=== PATIENT | male | born 1995 | race Two or more races ===

== ENCOUNTER 2018-05-22 00:05 | Emergency (ER) | payer OTHER ==
[~2018-05-22] VITALS: Ht 157.5 cm; Wt 46.7 kg
[2018-05-22] MEDS ORDERED: IBUPROFEN 100MG/5ML ORAL SUSP 100 MG/5 ML UD PO ONE (00:30)
[2018-05-22] MEDS ORDERED: ACETAMINOPHEN 650 MG RECT SUPP PR ONE (01:15)
[2018-05-22 01:19] LABS: Hemoglobin 16.4 g/dL (13.5-17.5); White Blood Cell 6.8 10^3/uL (4.4-10.8)
[2018-05-22 01:23] LABS: Basophils # (auto) 0.1 uL; Basophils % (auto) 0.8 % (0.0-2.0); Eosinophils # (auto) 0.2 uL; Eosinophils % (auto) 2.6 % (0.0-7.0); Hematocrit 48.5 % (41.0-53.0); Lymphocytes # (auto) 0.9 uL; Lymphocytes % (auto) 13.7 % (10.0-50.0); Mean Corpuscular Hgb Conc. 33.9 g/dL (32.0-36.0); Mean Corpuscular Volume 88.6 fL (80.0-100.0); Monocytes # (auto) 0.7 uL; Monocytes % (auto) 10.2 % (0.0-12.0); Neutrophils # (auto) 4.9 uL; Neutrophils % (auto) 72.7 % (37.0-80.0); Platelet Count (auto) 106 10^3/uL (140-450); Red Blood Cells 5.47 10^6/uL (4.5-5.90)
[2018-05-22 01:36] LABS: Albumin 3.9 g/dL (3.4-5.0); Calcium 8.9 mg/dL (8.5-10.1); Potassium 4.5 mmol/L (3.5-5.1)
[2018-05-22 01:39] LABS: BUN/Creatinine Ratio 33.3
[2018-05-22 01:42] LABS: Bilirubin, Total 0.4 mg/dL (0.2-1.0); Total Protein 8.4 g/dL (6.4-8.2)
[2018-05-22] MEDS ORDERED: SODIUM CHLORIDE 0.9% 1,000 ML IV ONE (01:45)
[2018-05-22 03:51] LABS: Urine Amorphous Crystal FEW /hpf (None Seen); Urine Bacteria FEW /hpf (None Seen); Urine Blood Negative /uL (Negative); Urine Mucus FEW (None Seen); Urine Specific Gravity 1.032 (1.001-1.035); Urine WBC 4 /hpf (0 - 3)
[2018-05-22 05:45] VITALS: BP 157/129
== END 2018-05-22 06:36 | disposition home or self-care (01) ==
LOC: EDBD 00:05 → ER 00:05
DX: J06.9 Acute upper respiratory infection, unspecified (principal)
CPT/HCPCS: 36415; 71045; 80053; 81001; 85025; 94761

== ENCOUNTER → 2019-09-27 | Emergency (ER) | payer MEDICAID ==
[~2019-09-27] VITALS: Ht 134.6 cm; Wt 46.3 kg
[~2019-09-27] MED LIST: OXCA300T50 OR
[2019-09-27 20:53] VITALS: BP 116/66
== END | disposition home or self-care (01) ==
LOC: EDUNIT# 19:42 → EDBD 19:57 → ER 19:58
DX: J20.9 Acute bronchitis, unspecified (principal); G80.9 Cerebral palsy, unspecified; Z79.899 Other long term (current) drug therapy
CPT/HCPCS: 71045

== ENCOUNTER 2020-07-14 18:18 | Emergency (ER) | payer MEDICAID, OTHER ==
[2020-07-14] MEDS ORDERED: GASTROGRAFIN 30 ML SOL ONE ×2 (18:42→19:16)
== END 2020-07-14 20:27 | disposition home or self-care (01) ==
LOC: ER 18:20 → MERGE 18:20 → EDBD 18:20 → ER 20:27
DX: Z43.1 Encounter for attention to gastrostomy (principal)
CPT/HCPCS: 43762; 74018; 74021; 99284; Q9963; 43760

== ENCOUNTER 2021-04-20 12:39 | Inpatient (IN) | payer MEDICAID ==
[~2021-04-20] VITALS: Ht 170.2 cm; Wt 51.2 kg
[2021-04-20 13:50] LABS: Basophils # (auto) 0.1 10 ^3/uL (0-0.2); Basophils % (auto) 0.4 % (0.0-2.0); Eosinophils # (auto) 0 10 ^3/uL (0-0.8); Hematocrit 46.2 % (41.0-53.0); Hemoglobin 15.5 g/dL (13.5-17.5); Lymphocytes # (auto) 0.5 10 ^3/uL (0.4-5.4); Lymphocytes % (auto) 2.9 % (10.0-50.0); Mean Corpuscular Hemoglobin 29.6 pg (28.0-32.0); Mean Corpuscular Hgb Conc. 33.5 g/dL (32.0-36.0); Mean Corpuscular Volume 88.2 fL (80.0-100.0); Monocytes % (auto) 6.2 % (0.0-12.0); Neutrophils # (auto) 14.9 10 ^3/uL (1.6-8.6); Neutrophils % (auto) 90.5 % (37.0-80.0); Red Blood Cells 5.24 10^6/uL (4.5-5.90); Red Cell Distribution Width 12.3 % (11.8-14.3); White Blood Cell 16.4 10^3/uL (4.4-10.8)
[2021-04-20 14:13] LABS: Albumin 3.5 g/dL (3.4-5.0); Calcium 9.5 mg/dL (8.5-10.1); Potassium 4.7 mmol/L (3.5-5.1)
[2021-04-20 14:16] LABS: BUN/Creatinine Ratio 23.5; Bilirubin, Total 0.5 mg/dL (0.2-1.0); Total Protein 8.4 g/dL (6.4-8.2)
[2021-04-20] MEDS ORDERED: ACETAMINOPHEN 650 mg PER 20.3 mL UD PO ONE (14:30)
[2021-04-20] MEDS ORDERED: ACETAMINOPHEN 650 MG RECT SUPP PR ONE (14:45)
[2021-04-20] MEDS ORDERED: cefTRIAXone 1GM/50ML D5W 50 ML IV ONE (15:00)
[2021-04-20 15:34] LABS: Urine Bacteria NONE SEEN /hpf (None Seen); Urine Blood TRACE /uL (Negative); Urine Mucus FEW (None Seen); Urine Specific Gravity 1.031 (1.001-1.035); Urine WBC 2 /hpf (0 - 3)
[2021-04-20] MEDS ORDERED: AZITHROMYCIN 500MG/ 250ML 250 ML IV ONE (17:15)
[2021-04-20] MEDS ORDERED: MORPHINE SULFATE INJECTION 2 MG/ML SYRG IV PRN (18:45)
[2021-04-20] MEDS ORDERED: VANCOMYCIN PER PHARMACY 0 MG IV SCH (18:45)
[2021-04-20] MEDS ORDERED: NITROGLYCERIN 0.4 MG SL TAB SL PRN (18:45)
[2021-04-20] MEDS ORDERED: CHOLECALCIFEROL (VITD3) 2,000 UNIT CAP/TAB PO SCH (19:35)
[2021-04-20] MEDS ORDERED: ASCORBIC ACID 1,000 MG TAB PO SCH (19:35)
[2021-04-20] MEDS: ZINC SULFATE 220mg CAP or TAB PO SCH (19:36)
[2021-04-20] MEDS ORDERED: DexAMETHasone SOD PHOS 10MG/1ML VIAL INJ IV SCH (19:36)
[2021-04-20] MEDS ORDERED: LORazepam 2MG/ML-1ML VIAL ONE (21:34)
[2021-04-20] MEDS ORDERED: LORazepam 2MG/ML-1ML VIAL IV ONE (21:45)
[2021-04-20] MEDS ORDERED: OXcarbazepine 300 MG TAB PO ONE (22:00)
[2021-04-20] MEDS: OXcarbazepine 300 MG TAB PO SCH (22:04)
[2021-04-20] MEDS: SODIUM CHLORIDE 0.9% 1,000 ML IV SCH (23:07)
[2021-04-20] MEDS: PIPERACILLIN-TAZOB 3.375GM 100 ML IV SCH (23:08)
[2021-04-20] MEDS: VANCOMYCIN 750mg/250ml 250 ML IV SCH (23:08)
[2021-04-21] MEDS: PIPERACILLIN-TAZOB 3.375GM 100 ML IV SCH ×4 (03:25→20:59)
[2021-04-21] MEDS: VANCOMYCIN 750mg/250ml 250 ML IV SCH ×3 (06:10→19:58)
[2021-04-21 07:30] LABS: Basophils # (auto) 0 10 ^3/uL (0-0.2); Basophils % (auto) 0.2 % (0.0-2.0); Eosinophils # (auto) 0 10 ^3/uL (0-0.8); Hematocrit 37.9 % (41.0-53.0); Hemoglobin 12.9 g/dL (13.5-17.5); Lymphocytes # (auto) 0.9 10 ^3/uL (0.4-5.4); Lymphocytes % (auto) 5.7 % (10.0-50.0); Mean Corpuscular Hemoglobin 30.2 pg (28.0-32.0); Mean Corpuscular Hgb Conc. 34.1 g/dL (32.0-36.0); Mean Corpuscular Volume 88.5 fL (80.0-100.0); Monocytes # (auto) 0.7 10 ^3/uL (0-1.3); Monocytes % (auto) 4.1 % (0.0-12.0); Neutrophils # (auto) 14.6 10 ^3/uL (1.6-8.6); Red Blood Cells 4.28 10^6/uL (4.5-5.90); Red Cell Distribution Width 12.3 % (11.8-14.3); White Blood Cell 16.2 10^3/uL (4.4-10.8)
[2021-04-21 07:36] LABS: Calcium 8.2 mg/dL (8.5-10.1); Potassium 3.9 mmol/L (3.5-5.1)
[2021-04-21 07:39] LABS: BUN/Creatinine Ratio 20.5
[2021-04-21] MEDS: Ensure Enlive Chocolate 8oz Bottle GT SCH ×3 (08:00→18:00)
[2021-04-21] MEDS: ZINC SULFATE 220mg CAP or TAB PO SCH (10:00)
[2021-04-21] MEDS ORDERED: Glucerna Carbsteady SHAKE Vanilla 8oz GT SCH (10:00)
[2021-04-21] MEDS ORDERED: OXcarbazepine 300 MG TAB PO SCH (10:00)
[2021-04-21] MEDS: ACETAMINOPHEN 650 mg PER 20.3 mL UD GT PRN (11:20)
[2021-04-21] MEDS: LORazepam 2MG/ML-1ML VIAL IV PRN (11:21)
[2021-04-21] MEDS: SODIUM CHLORIDE 0.9% 1,000 ML IV SCH ×2 (12:31→17:00)
[2021-04-21] MEDS ORDERED: SODIUM CHLORIDE 0.9% 1,000 ML IV ONE (14:45)
[2021-04-21] MEDS ORDERED: OMNIPAQUE ORAL SOLN 500ml 12mg/ml PO ONE (15:54)
[2021-04-21 17:13] LABS: INR 1.26 (0.9-1.15); Partial Thromboplastin Time 29.1 sec (23.6-33.0)
[2021-04-21] MEDS ORDERED: IOHEXOL 300 MG/ML 100ML BOTTLE IJ ONE (17:56)
[2021-04-21] MEDS: NOREPINEPHRINE 8 MG/250ML KIT 250 ML IV SCH (18:18)
[2021-04-21] MEDS ORDERED: Jevity 1.2 Cal/Fiber 1 Liter GT SCH (18:30)
[2021-04-21] MEDS: ONDANSETRON HCL 4 MG/2 ML VIAL IV PRN (19:13)
[2021-04-21] MEDS: ENTERAL NUTRITION FORMULA GT SCH (20:59)
[2021-04-21] MEDS: OXcarbazepine 300 MG TAB PO SCH (22:02)
[2021-04-22] VITALS (26 sets, daily range): BP systolic 72–140; BP diastolic 34–94
[2021-04-22] MEDS: LORazepam 2MG/ML-1ML VIAL IV PRN (02:57)
[2021-04-22] MEDS: PIPERACILLIN-TAZOB 3.375GM 100 ML IV SCH ×4 (03:06→21:29)
[2021-04-22] MEDS: VANCOMYCIN 750mg/250ml 250 ML IV SCH ×3 (04:00→20:20)
[2021-04-22] MEDS: ACETAMINOPHEN 650 mg PER 20.3 mL UD GT PRN ×2 (05:22→20:24)
[2021-04-22] MEDS: NOREPINEPHRINE 8 MG/250ML KIT 250 ML IV SCH (06:07)
[2021-04-22 07:12] LABS: Basophils # (auto) 0 10 ^3/uL (0-0.2); Basophils % (auto) 0.2 % (0.0-2.0); Eosinophils # (auto) 0 10 ^3/uL (0-0.8); Eosinophils % (auto) 0.1 % (0.0-7.0); Hemoglobin 12.4 g/dL (13.5-17.5); Lymphocytes # (auto) 1.4 10 ^3/uL (0.4-5.4); Lymphocytes % (auto) 8.2 % (10.0-50.0); Mean Corpuscular Hemoglobin 29.1 pg (28.0-32.0); Mean Corpuscular Hgb Conc. 32.7 g/dL (32.0-36.0); Mean Corpuscular Volume 88.9 fL (80.0-100.0); Monocytes # (auto) 0.7 10 ^3/uL (0-1.3); Monocytes % (auto) 3.9 % (0.0-12.0); Neutrophils # (auto) 15.3 10 ^3/uL (1.6-8.6); Neutrophils % (auto) 87.6 % (37.0-80.0); Nucleated Red Blood Cells % 0.1 %; Red Blood Cells 4.28 10^6/uL (4.5-5.90); Red Cell Distribution Width 12.7 % (11.8-14.3); White Blood Cell 17.5 10^3/uL (4.4-10.8)
[2021-04-22 07:34] LABS: BUN/Creatinine Ratio 20.8; Calcium 7.4 mg/dL (8.5-10.1); Potassium 3.3 mmol/L (3.5-5.1)
[2021-04-22 07:37] LABS: Bilirubin, Total 0.4 mg/dL (0.2-1.0); Total Protein 5.6 g/dL (6.4-8.2)
[2021-04-22] MEDS: ENTERAL NUTRITION FORMULA GT SCH ×3 (08:00→19:00)
[2021-04-22] MEDS: OXcarbazepine 300 MG TAB PO SCH ×2 (10:00→21:29)
[2021-04-22] MEDS: SODIUM CHLORIDE 0.9% 1,000 ML IV SCH (10:45)
[2021-04-22] MEDS: POTASSIUM CHL 20MEQ/100ML 100 ML IV SCH ×2 (11:00→12:45)
[2021-04-22] MEDS ORDERED: ROCURONIUM 10MG/ML 10ML VIAL IV ONE ×2 (11:57→13:22)
[2021-04-22] MEDS ORDERED: SUCCINYLCHOLINE CHLORIDE 20 MG/ML 10ML VIAL IV ONE (11:57)
[2021-04-22] MEDS ORDERED: HYDROmorphone HCL 2 MG/ML VL ONE ×2 (12:03→13:50)
[2021-04-22] MEDS ORDERED: fentaNYL CITRATE 100 MCG/2 ML VL ONE (12:04)
[2021-04-22] MEDS ORDERED: PHENYLEPHRINE HCL 10 MG/ML VL ONE (12:04)
[2021-04-22] MEDS ORDERED: MIDAZOLAM HCL 2MG/2ML 2ml VIAL (1mg/ml) ONE ×2 (12:04→14:26)
[2021-04-22] MEDS ORDERED: BUPIVACAINE 0.25% INJ 50ML VIAL ONE (12:21)
[2021-04-22] MEDS ORDERED: ceFAZolin 1GM/50ML 50 ML IV ONE (12:50)
[2021-04-22] MEDS ORDERED: ONDANSETRON HCL 4 MG/2 ML VIAL IV PRN (15:00)
[2021-04-22] MEDS ORDERED: HYDROmorphone HCL 2 MG/ML VL IV PRN (15:00)
[2021-04-22] MEDS ORDERED: MORPHINE SULFATE 4 MG/ML SYR/VIAL IV PRN (15:00)
[2021-04-22] MEDS: MIDAZOLAM DRIP 50 mg/50mL 50 ML IV SCH (17:30)
[2021-04-22] MEDS: fentaNYL Drip 2500mCg/250mlNS 250 ML IV SCH (17:30)
[2021-04-22] MEDS: PROPOFOL 100 ML IV SCH (18:15)
[2021-04-22] MEDS ORDERED: PROPOFOL 100 ML IV ONE (18:17)
[2021-04-23] VITALS (106 sets, daily range): BP systolic 83–118; BP diastolic 45–79
[2021-04-23] MEDS: PIPERACILLIN-TAZOB 3.375GM 100 ML IV SCH ×4 (03:11→20:46)
[2021-04-23] MEDS: VANCOMYCIN 750mg/250ml 250 ML IV SCH (04:21)
[2021-04-23] MEDS: NOREPINEPHRINE 8 MG/250ML KIT 250 ML IV SCH (07:07)
[2021-04-23 07:23] LABS: Basophils # (auto) 0 10 ^3/uL (0-0.2); Basophils % (auto) 0.2 % (0.0-2.0); Eosinophils # (auto) 0.1 10 ^3/uL (0-0.8); Eosinophils % (auto) 0.7 % (0.0-7.0); Hematocrit 40.9 % (41.0-53.0); Hemoglobin 13.8 g/dL (13.5-17.5); Lymphocytes # (auto) 0.9 10 ^3/uL (0.4-5.4); Lymphocytes % (auto) 5.3 % (10.0-50.0); Mean Corpuscular Hgb Conc. 33.7 g/dL (32.0-36.0); Mean Corpuscular Volume 88.8 fL (80.0-100.0); Monocytes # (auto) 0.8 10 ^3/uL (0-1.3); Monocytes % (auto) 5.1 % (0.0-12.0); Neutrophils # (auto) 14.8 10 ^3/uL (1.6-8.6); Neutrophils % (auto) 88.7 % (37.0-80.0); Red Blood Cells 4.61 10^6/uL (4.5-5.90); Red Cell Distribution Width 12.9 % (11.8-14.3); White Blood Cell 16.7 10^3/uL (4.4-10.8)
[2021-04-23 07:38] LABS: Albumin 1.8 g/dL (3.4-5.0); Calcium 7.8 mg/dL (8.5-10.1)
[2021-04-23 07:42] LABS: BUN/Creatinine Ratio 8.9; Bilirubin, Total 0.3 mg/dL (0.2-1.0); Total Protein 5.8 g/dL (6.4-8.2)
[2021-04-23] MEDS: ENTERAL NUTRITION FORMULA GT SCH ×3 (08:00→19:00)
[2021-04-23] MEDS: POTASSIUM CHL 20MEQ/100ML 100 ML IV SCH ×2 (08:47→10:49)
[2021-04-23] MEDS: OXcarbazepine 300 MG TAB PO SCH ×2 (08:56→21:35)
[2021-04-23] MEDS: D5W/SOD CHLO 0.9% 1,000 ML IV SCH (10:45)
[2021-04-23] MEDS ORDERED: CLINIMIX PER PHARMACY 0 ML IV SCH (13:45)
[2021-04-23] MEDS: CLINDAMYCIN 300MG IV 50 ML IV SCH ×2 (14:13→21:34)
[2021-04-23 14:56] LABS: Magnesium 2.3 mg/dL (1.6-2.6); Phosphorus 2.2 mg/dL (2.5-4.90)
[2021-04-23] MEDS ORDERED: POTASSIUM PHOSP 22MEQ(15MMOLE) in NS 100 ML IV ONE (16:00)
[2021-04-23] MEDS: fentaNYL Drip 2500mCg/250mlNS 250 ML IV SCH (16:19)
[2021-04-23] MEDS: MIDAZOLAM DRIP 50 mg/50mL 50 ML IV SCH (16:20)
[2021-04-23] MEDS: PROPOFOL 100 ML IV SCH (18:15)
[2021-04-23] MEDS ORDERED: AMINO ACID INFUSION IN D10W 1,000 ML IV NR (20:00)
[2021-04-23] MEDS: ACCU-CHEK COMFORT CURVE STRIP VI SCH (23:33)
[2021-04-24] VITALS (103 sets, daily range): BP systolic 76–139; BP diastolic 31–98
[2021-04-24] MEDS ORDERED: DEXTROSE (50%) 50ML SYRG IV SCH
[2021-04-24] MEDS: PIPERACILLIN-TAZOB 3.375GM 100 ML IV SCH ×5 (03:23→21:08)
[2021-04-24 04:33] LABS: Albumin 1.6 g/dL (3.4-5.0); Calcium 7.7 mg/dL (8.5-10.1); Magnesium 2.2 mg/dL (1.6-2.6); Potassium 3.1 mmol/L (3.5-5.1)
[2021-04-24 04:39] LABS: BUN/Creatinine Ratio 12.2; Bilirubin, Total 0.3 mg/dL (0.2-1.0); Phosphorus 3.9 mg/dL (2.5-4.90); Pre Albumin 5.7 mg/dL (20.0-40.0); Total Protein 5.5 g/dL (6.4-8.2)
[2021-04-24] MEDS: CLINDAMYCIN 300MG IV 50 ML IV SCH ×3 (05:52→21:35)
[2021-04-24] MEDS: ACCU-CHEK COMFORT CURVE STRIP VI SCH ×3 (05:52→17:52)
[2021-04-24] MEDS: InsuLIN REG 1unit/0.01ml Soln (100units/ml) SC SCH ×4 (05:52→17:52)
[2021-04-24] MEDS: D5W/SOD CHLO 0.9% 1,000 ML IV SCH ×2 (07:00→13:25)
[2021-04-24] MEDS: MIDAZOLAM DRIP 50 mg/50mL 50 ML IV SCH ×2 (07:54→17:54)
[2021-04-24] MEDS: ENTERAL NUTRITION FORMULA GT SCH ×3 (08:00→15:35)
[2021-04-24] MEDS: ACETAMINOPHEN 650 mg PER 20.3 mL UD GT PRN ×2 (08:15→17:56)
[2021-04-24] MEDS: OXcarbazepine 300 MG TAB PO SCH ×2 (09:21→21:35)
[2021-04-24 09:57] LABS: Basophils # (auto) 0 10 ^3/uL (0-0.2); Basophils % (auto) 0.2 % (0.0-2.0); Eosinophils # (auto) 0.3 10 ^3/uL (0-0.8); Eosinophils % (auto) 2.4 % (0.0-7.0); Hematocrit 36.3 % (41.0-53.0); Hemoglobin 12.3 g/dL (13.5-17.5); Lymphocytes # (auto) 1.5 10 ^3/uL (0.4-5.4); Lymphocytes % (auto) 12.1 % (10.0-50.0); Mean Corpuscular Hemoglobin 30.1 pg (28.0-32.0); Mean Corpuscular Hgb Conc. 33.8 g/dL (32.0-36.0); Mean Corpuscular Volume 89.3 fL (80.0-100.0); Monocytes # (auto) 0.9 10 ^3/uL (0-1.3); Monocytes % (auto) 7.8 % (0.0-12.0); Neutrophils # (auto) 9.3 10 ^3/uL (1.6-8.6); Neutrophils % (auto) 77.5 % (37.0-80.0); Red Blood Cells 4.07 10^6/uL (4.5-5.90)
[2021-04-24] MEDS: LORazepam 2MG/ML-1ML VIAL IV PRN (11:45)
[2021-04-24] MEDS ORDERED: FAMOTIDINE (10MG/ML) 2ML VL IV ONE (12:45)
[2021-04-24] MEDS ORDERED: PIPERACILLIN-TAZOB 3.375GM 100 ML IV ONE (13:29)
[2021-04-24] MEDS ORDERED: SODIUM CHLORIDE 0.9% 200 ML IV ONE (13:30)
[2021-04-24] MEDS: POTASSIUM CHL 20MEQ/100ML 100 ML IV SCH ×3 (13:39→16:18)
[2021-04-24] MEDS: NOREPINEPHRINE 8 MG/250ML KIT 250 ML IV SCH (13:40)
[2021-04-24] MEDS ORDERED: PIPERACILLIN-TAZOB 3.375GM 100 ML IV SCH (15:00)
[2021-04-24] MEDS: fentaNYL Drip 2500mCg/250mlNS 250 ML IV SCH (15:22)
[2021-04-24] MEDS: PROPOFOL 100 ML IV SCH (17:53)
[2021-04-24] MEDS ORDERED: AMINO ACID INFUSION IN D10W 1,000 ML IV NR (20:00)
[2021-04-24] MEDS ORDERED: DIGOXIN (250MCG/ML) 2 ML AMPULE ONE (21:11)
[2021-04-24] MEDS ORDERED: NOREPINEPHRINE BITARTRATE 2 ML IV ONE (22:14)
[2021-04-25] VITALS (88 sets, daily range): BP systolic 88–135; BP diastolic 52–91
[2021-04-25] MEDS: ACCU-CHEK COMFORT CURVE STRIP VI SCH ×4 (00:42→17:36)
[2021-04-25] MEDS: ACETAMINOPHEN 650 mg PER 20.3 mL UD GT PRN ×2 (00:51→14:33)
[2021-04-25] MEDS: PIPERACILLIN-TAZOB 3.375GM 100 ML IV SCH ×4 (03:23→20:43)
[2021-04-25 04:03] LABS: Basophils # (auto) 0 10 ^3/uL (0-0.2); Basophils % (auto) 0.3 % (0.0-2.0); Eosinophils # (auto) 0.4 10 ^3/uL (0-0.8); Eosinophils % (auto) 3.7 % (0.0-7.0); Hematocrit 36.1 % (41.0-53.0); Hemoglobin 12.3 g/dL (13.5-17.5); Lymphocytes # (auto) 1.1 10 ^3/uL (0.4-5.4); Lymphocytes % (auto) 11.1 % (10.0-50.0); Mean Corpuscular Hemoglobin 29.9 pg (28.0-32.0); Mean Corpuscular Hgb Conc. 34.2 g/dL (32.0-36.0); Mean Corpuscular Volume 87.6 fL (80.0-100.0); Monocytes # (auto) 0.7 10 ^3/uL (0-1.3); Neutrophils # (auto) 7.6 10 ^3/uL (1.6-8.6); Neutrophils % (auto) 77.9 % (37.0-80.0); Red Blood Cells 4.12 10^6/uL (4.5-5.90); Red Cell Distribution Width 12.7 % (11.8-14.3); White Blood Cell 9.8 10^3/uL (4.4-10.8)
[2021-04-25 04:29] LABS: Albumin 1.6 g/dL (3.4-5.0); Calcium 7.9 mg/dL (8.5-10.1); Magnesium 2.1 mg/dL (1.6-2.6); Potassium 3.4 mmol/L (3.5-5.1)
[2021-04-25 04:32] LABS: Bilirubin, Total 0.3 mg/dL (0.2-1.0); Phosphorus 3.2 mg/dL (2.5-4.90); Total Protein 5.6 g/dL (6.4-8.2)
[2021-04-25] MEDS: LORazepam 2MG/ML-1ML VIAL IV PRN ×2 (04:59→15:33)
[2021-04-25] MEDS: InsuLIN REG 1unit/0.01ml Soln (100units/ml) SC SCH ×4 (06:00→17:36)
[2021-04-25] MEDS: D5W/SOD CHLO 0.9% 1,000 ML IV SCH ×2 (06:15→17:49)
[2021-04-25] MEDS: CLINDAMYCIN 300MG IV 50 ML IV SCH ×3 (06:16→21:58)
[2021-04-25] MEDS: ENTERAL NUTRITION FORMULA GT SCH ×3 (08:00→19:00)
[2021-04-25] MEDS ORDERED: POTASSIUM CHL 20MEQ/100ML 100 ML IV ONE (09:00)
[2021-04-25] MEDS: OXcarbazepine 300 MG TAB PO SCH ×2 (09:41→21:59)
[2021-04-25] MEDS: FAMOTIDINE (10MG/ML) 2ML VL IV SCH (09:41)
[2021-04-25] MEDS: NOREPINEPHRINE 8 MG/250ML KIT 250 ML IV SCH (13:30)
[2021-04-25] MEDS: MIDAZOLAM DRIP 50 mg/50mL 50 ML IV SCH ×2 (15:19→20:31)
[2021-04-25] MEDS: fentaNYL Drip 2500mCg/250mlNS 250 ML IV SCH (18:01)
[2021-04-25] MEDS: PROPOFOL 100 ML IV SCH (18:15)
[2021-04-25] MEDS ORDERED: AMINO ACID INFUSION IN D10W 1,000 ML IV NR (20:00)
[2021-04-26] VITALS (104 sets, daily range): BP systolic 82–129; BP diastolic 44–94
[2021-04-26] MEDS: ACCU-CHEK COMFORT CURVE STRIP VI SCH ×4 (00:25→18:08)
[2021-04-26] MEDS: PIPERACILLIN-TAZOB 3.375GM 100 ML IV SCH ×4 (03:22→20:35)
[2021-04-26 04:58] LABS: Basophils # (auto) 0 10 ^3/uL (0-0.2); Basophils % (auto) 0.4 % (0.0-2.0); Eosinophils # (auto) 0.3 10 ^3/uL (0-0.8); Eosinophils % (auto) 5.2 % (0.0-7.0); Hematocrit 33.7 % (41.0-53.0); Hemoglobin 11.4 g/dL (13.5-17.5); Lymphocytes # (auto) 0.9 10 ^3/uL (0.4-5.4); Lymphocytes % (auto) 13.9 % (10.0-50.0); Mean Corpuscular Hemoglobin 30.1 pg (28.0-32.0); Mean Corpuscular Volume 88.5 fL (80.0-100.0); Monocytes # (auto) 0.7 10 ^3/uL (0-1.3); Monocytes % (auto) 9.8 % (0.0-12.0); Neutrophils # (auto) 4.7 10 ^3/uL (1.6-8.6); Neutrophils % (auto) 70.7 % (37.0-80.0); Red Blood Cells 3.81 10^6/uL (4.5-5.90); Red Cell Distribution Width 12.7 % (11.8-14.3); White Blood Cell 6.7 10^3/uL (4.4-10.8)
[2021-04-26 05:17] LABS: Potassium 3.2 mmol/L (3.5-5.1)
[2021-04-26 05:21] LABS: Albumin 1.4 g/dL (3.4-5.0); BUN/Creatinine Ratio 21.2; Calcium 7.9 mg/dL (8.5-10.1)
[2021-04-26 05:24] LABS: Bilirubin, Total 0.4 mg/dL (0.2-1.0); Phosphorus 3.1 mg/dL (2.5-4.90); Total Protein 5.7 g/dL (6.4-8.2)
[2021-04-26] MEDS: InsuLIN REG 1unit/0.01ml Soln (100units/ml) SC SCH ×4 (06:00→18:00)
[2021-04-26] MEDS: ACETAMINOPHEN 650 mg PER 20.3 mL UD GT PRN ×3 (06:15→16:56)
[2021-04-26] MEDS: CLINDAMYCIN 300MG IV 50 ML IV SCH ×3 (06:15→22:24)
[2021-04-26] MEDS: fentaNYL Drip 2500mCg/250mlNS 250 ML IV SCH (06:55)
[2021-04-26] MEDS: MIDAZOLAM DRIP 50 mg/50mL 50 ML IV SCH (06:56)
[2021-04-26] MEDS: ENTERAL NUTRITION FORMULA GT SCH ×3 (08:00→16:22)
[2021-04-26] MEDS ORDERED: POTASSIUM CHL 20MEQ/100ML 100 ML IV ONE (08:45)
[2021-04-26] MEDS: FAMOTIDINE (10MG/ML) 2ML VL IV SCH (10:25)
[2021-04-26] MEDS: OXcarbazepine 300 MG TAB PO SCH ×2 (10:25→20:36)
[2021-04-26] MEDS ORDERED: POTASSIUM PHOSPHATE 22 MEQ in SODIUM CHL 0.9% 100 ML IV ONE (11:00)
[2021-04-26] MEDS: NOREPINEPHRINE 8 MG/250ML KIT 250 ML IV SCH (13:30)
[2021-04-26] MEDS: PROPOFOL 100 ML IV SCH (17:03)
[2021-04-26] MEDS ORDERED: AMINO ACID INFUSION IN D10W 1,000 ML IV NR (20:00)
[2021-04-26] MEDS: LORazepam 2MG/ML-1ML VIAL IV PRN (22:00)
[2021-04-27] VITALS (83 sets, daily range): BP systolic 88–135; BP diastolic 44–88
[2021-04-27] MEDS: ACCU-CHEK COMFORT CURVE STRIP VI SCH ×4 (00:11→18:26)
[2021-04-27] MEDS: ACETAMINOPHEN 650 mg PER 20.3 mL UD GT PRN ×2 (00:23→20:21)
[2021-04-27] MEDS: D5W/SOD CHLO 0.9% 1,000 ML IV SCH (01:00)
[2021-04-27] MEDS: fentaNYL Drip 2500mCg/250mlNS 250 ML IV SCH (03:00)
[2021-04-27] MEDS: PIPERACILLIN-TAZOB 3.375GM 100 ML IV SCH ×4 (03:01→20:31)
[2021-04-27 04:15] LABS: Basophils # (auto) 0 10 ^3/uL (0-0.2); Basophils % (auto) 0.3 % (0.0-2.0); Eosinophils # (auto) 0.2 10 ^3/uL (0-0.8); Eosinophils % (auto) 2.9 % (0.0-7.0); Hematocrit 33.2 % (41.0-53.0); Hemoglobin 11.3 g/dL (13.5-17.5); Lymphocytes % (auto) 13.3 % (10.0-50.0); Mean Corpuscular Hemoglobin 29.5 pg (28.0-32.0); Mean Corpuscular Volume 86.8 fL (80.0-100.0); Monocytes # (auto) 0.9 10 ^3/uL (0-1.3); Monocytes % (auto) 11.9 % (0.0-12.0); Neutrophils # (auto) 5.2 10 ^3/uL (1.6-8.6); Neutrophils % (auto) 71.6 % (37.0-80.0); Red Blood Cells 3.83 10^6/uL (4.5-5.90); Red Cell Distribution Width 12.6 % (11.8-14.3); White Blood Cell 7.3 10^3/uL (4.4-10.8)
[2021-04-27 04:35] LABS: Potassium 3.4 mmol/L (3.5-5.1)
[2021-04-27 04:42] LABS: Albumin 1.7 g/dL (3.4-5.0); Bilirubin, Total 0.3 mg/dL (0.2-1.0); Calcium 8.2 mg/dL (8.5-10.1); Magnesium 2.3 mg/dL (1.6-2.6); Phosphorus 3.6 mg/dL (2.5-4.90); Total Protein 6.3 g/dL (6.4-8.2)
[2021-04-27] MEDS: InsuLIN REG 1unit/0.01ml Soln (100units/ml) SC SCH ×4 (06:00→18:00)
[2021-04-27] MEDS: CLINDAMYCIN 300MG IV 50 ML IV SCH ×3 (06:21→22:40)
[2021-04-27] MEDS: ENTERAL NUTRITION FORMULA GT SCH ×3 (08:00→18:02)
[2021-04-27] MEDS ORDERED: POTASSIUM CHL 20MEQ/100ML 100 ML IV ONE (09:15)
[2021-04-27] MEDS: FAMOTIDINE (10MG/ML) 2ML VL IV SCH (12:25)
[2021-04-27] MEDS: OXcarbazepine 300 MG TAB PO SCH ×2 (12:25→22:41)
[2021-04-27] MEDS: NOREPINEPHRINE 8 MG/250ML KIT 250 ML IV SCH (13:30)
[2021-04-27] MEDS: MIDAZOLAM DRIP 50 mg/50mL 50 ML IV SCH (15:36)
[2021-04-27] MEDS: PROPOFOL 100 ML IV SCH (18:02)
[2021-04-27] MEDS: LORazepam 2MG/ML-1ML VIAL IV PRN (18:28)
[2021-04-27] MEDS ORDERED: AMINO ACID INFUSION IN D10W 1,000 ML IV NR (20:00)
[2021-04-28] VITALS (41 sets, daily range): BP systolic 91–140; BP diastolic 52–87
[2021-04-28] MEDS: D5W/SOD CHLO 0.9% 1,000 ML IV SCH (00:45)
[2021-04-28] MEDS: ONDANSETRON HCL 4 MG/2 ML VIAL IV PRN (00:59)
[2021-04-28] MEDS ORDERED: PROMETHAZINE HCL 25 MG/ML 1ML ONE (01:30)
[2021-04-28] MEDS ORDERED: PROMETHAZINE HCL 25 MG/ML 1ML IV ONE (01:30)
[2021-04-28] MEDS: PIPERACILLIN-TAZOB 3.375GM 100 ML IV SCH ×2 (03:33→09:08)
[2021-04-28] MEDS: ACETAMINOPHEN 650 mg PER 20.3 mL UD GT PRN (03:35)
[2021-04-28 05:14] LABS: Potassium 3.2 mmol/L (3.5-5.1)
[2021-04-28 05:20] LABS: Albumin 2.1 g/dL (3.4-5.0); BUN/Creatinine Ratio 22.2; Bilirubin, Total 0.2 mg/dL (0.2-1.0); Calcium 8.7 mg/dL (8.5-10.1); Magnesium 2.5 mg/dL (1.6-2.6); Total Protein 7.4 g/dL (6.4-8.2)
[2021-04-28] MEDS: InsuLIN REG 1unit/0.01ml Soln (100units/ml) SC SCH ×5 (06:00→23:45)
[2021-04-28] MEDS: CLINDAMYCIN 300MG IV 50 ML IV SCH (06:18)
[2021-04-28] MEDS: ACCU-CHEK COMFORT CURVE STRIP VI SCH ×5 (06:18→23:45)
[2021-04-28] MEDS: ENTERAL NUTRITION FORMULA GT SCH ×3 (08:00→19:00)
[2021-04-28] MEDS: POTASSIUM CHL 20MEQ/100ML 100 ML IV SCH ×3 (09:08→15:46)
[2021-04-28] MEDS: OXcarbazepine 300 MG TAB PO SCH ×2 (09:08→22:00)
[2021-04-28] MEDS: FAMOTIDINE (10MG/ML) 2ML VL IV SCH (09:08)
[2021-04-28] MEDS: PROMETHAZINE HCL 25 MG/ML 1ML IV PRN ×2 (11:33→20:44)
[2021-04-28] MEDS: DOXYCYCLINE 100MG/250ML 250 ML IV SCH ×2 (12:21→23:19)
[2021-04-28] MEDS: LORazepam 2MG/ML-1ML VIAL IV PRN (13:10)
[2021-04-28] MEDS: NOREPINEPHRINE 8 MG/250ML KIT 250 ML IV SCH (13:30)
[2021-04-28] MEDS: fentaNYL Drip 2500mCg/250mlNS 250 ML IV SCH (16:15)
[2021-04-28] MEDS: MIDAZOLAM DRIP 50 mg/50mL 50 ML IV SCH (16:15)
[2021-04-28] MEDS: MORPHINE SULFATE INJECTION 2 MG/ML SYRG IV PRN ×2 (17:37→21:40)
[2021-04-28] MEDS: ACETAMINOPHEN 650 MG RECT SUPP PR PRN (17:45)
[2021-04-28] MEDS: PROPOFOL 100 ML IV SCH (18:15)
[2021-04-28] MEDS ORDERED: AMINO ACID INFUSION IN D10W 1,000 ML IV NR (20:00)
[2021-04-28] MEDS ORDERED: ACETAMINOPHEN IV 1000 MG/100ML (10MG/ML) IV ONE (20:30)
[2021-04-28] MEDS: metroNIDAZOLE 500MG/100ML 100 ML IV SCH (22:00)
[2021-04-29] VITALS (15 sets, daily range): BP systolic 102–172; BP diastolic 52–139
[2021-04-29] MEDS: D5W/SOD CHLO 0.9% 1,000 ML IV SCH (00:58)
[2021-04-29] MEDS: LORazepam 2MG/ML-1ML VIAL IV PRN ×5 (01:10→20:08)
[2021-04-29] MEDS: ACETAMINOPHEN 650 MG RECT SUPP PR PRN ×3 (04:22→20:08)
[2021-04-29] MEDS: InsuLIN REG 1unit/0.01ml Soln (100units/ml) SC SCH ×3 (06:00→18:00)
[2021-04-29] MEDS: metroNIDAZOLE 500MG/100ML 100 ML IV SCH ×2 (06:10→14:33)
[2021-04-29] MEDS: ACCU-CHEK COMFORT CURVE STRIP VI SCH ×3 (06:11→18:32)
[2021-04-29] MEDS: ENTERAL NUTRITION FORMULA GT SCH ×3 (08:00→19:00)
[2021-04-29 08:49] LABS: Basophils # (auto) 0 10 ^3/uL (0-0.2); Basophils % (auto) 0.3 % (0.0-2.0); Eosinophils # (auto) 0.1 10 ^3/uL (0-0.8); Eosinophils % (auto) 1.5 % (0.0-7.0); Hematocrit 36.6 % (41.0-53.0); Hemoglobin 12.5 g/dL (13.5-17.5); Lymphocytes # (auto) 0.8 10 ^3/uL (0.4-5.4); Lymphocytes % (auto) 8.5 % (10.0-50.0); Mean Corpuscular Hgb Conc. 34.1 g/dL (32.0-36.0); Mean Corpuscular Volume 87.8 fL (80.0-100.0); Monocytes # (auto) 0.6 10 ^3/uL (0-1.3); Monocytes % (auto) 6.8 % (0.0-12.0); Neutrophils # (auto) 7.6 10 ^3/uL (1.6-8.6); Neutrophils % (auto) 82.9 % (37.0-80.0); Nucleated Red Blood Cells % 0.1 %; Red Blood Cells 4.17 10^6/uL (4.5-5.90); Red Cell Distribution Width 12.5 % (11.8-14.3); White Blood Cell 9.2 10^3/uL (4.4-10.8)
[2021-04-29 09:07] LABS: Albumin 2.2 g/dL (3.4-5.0); Calcium 8.4 mg/dL (8.5-10.1); Magnesium 2.5 mg/dL (1.6-2.6); Potassium 3.3 mmol/L (3.5-5.1)
[2021-04-29 09:10] LABS: BUN/Creatinine Ratio 44.1; Bilirubin, Total 0.3 mg/dL (0.2-1.0); Phosphorus 3.4 mg/dL (2.5-4.90); Total Protein 6.8 g/dL (6.4-8.2)
[2021-04-29] MEDS: FAMOTIDINE (10MG/ML) 2ML VL IV SCH (09:44)
[2021-04-29] MEDS: OXcarbazepine 300 MG TAB PO SCH (09:45)
[2021-04-29] MEDS ORDERED: levoFLOXacin 250MG 50 ML IV SCH (10:00)
[2021-04-29] MEDS ORDERED: ACETYLCYSTEINE 10 %(100MG/ML) SOL 4ML NEB ONE (11:30)
[2021-04-29] MEDS: MORPHINE SULFATE INJECTION 2 MG/ML SYRG IV PRN ×2 (11:52→18:00)
[2021-04-29] MEDS: ALBUTEROL SULF 2.5 MG/0.5ML(0.5%) NEB SOLN NEB PRN ×2 (11:59→19:20)
[2021-04-29] MEDS: DOXYCYCLINE 100MG/250ML 250 ML IV SCH (12:44)
[2021-04-29] MEDS: NOREPINEPHRINE 8 MG/250ML KIT 250 ML IV SCH (13:30)
[2021-04-29] MEDS ORDERED: FUROSEMIDE 20 MG/2 ML VIAL IV ONE (14:00)
[2021-04-29] MEDS: MIDAZOLAM DRIP 50 mg/50mL 50 ML IV SCH (16:15)
[2021-04-29] MEDS: fentaNYL Drip 2500mCg/250mlNS 250 ML IV SCH (16:15)
[2021-04-29] MEDS: POTASSIUM CHL 20MEQ/100ML 100 ML IV SCH ×2 (16:57→20:29)
[2021-04-29] MEDS ORDERED: VANCOMYCIN PER PHARMACY 0 MG IV SCH (17:00)
[2021-04-29] MEDS: PROMETHAZINE HCL 25 MG/ML 1ML IV PRN (17:59)
[2021-04-29] MEDS: PROPOFOL 100 ML IV SCH (18:15)
[2021-04-29] MEDS: AMPICILLIN & SULBACTAM SODIUM 3 GM in SODIUM CHL 0.9% 100 ML IV SCH ×2 (18:31→23:07)
[2021-04-29] MEDS: ACETYLCYSTEINE 10 %(100MG/ML) SOL 4ML NEB SCH ×3 (19:20→22:39)
[2021-04-29] MEDS ORDERED: AMINO ACID INFUSION IN D10W 1,000 ML IV NR (20:00)
[2021-04-29] MEDS: VANCOMYCIN 750mg/250ml 250 ML IV SCH (20:32)
[2021-04-29] MEDS ORDERED: IBUPROFEN 100MG/5ML ORAL SUSP 100 MG/5 ML UD GT PRN (23:15)
[2021-04-30] VITALS (19 sets, daily range): BP systolic 88–179; BP diastolic 48–160
[2021-04-30] MEDS: ACCU-CHEK COMFORT CURVE STRIP VI SCH ×4 (00:32→18:04)
[2021-04-30] MEDS: D5W/SOD CHLO 0.9% 1,000 ML IV SCH (00:58)
[2021-04-30] MEDS: IBUPROFEN 100MG/5ML ORAL SUSP 100 MG/5 ML UD GT PRN ×3 (00:58→20:53)
[2021-04-30] MEDS: ACETYLCYSTEINE 10 %(100MG/ML) SOL 4ML NEB SCH ×5 (02:00→18:00)
[2021-04-30 04:58] LABS: Basophils # (auto) 0 10 ^3/uL (0-0.2); Basophils % (auto) 0.4 % (0.0-2.0); Eosinophils # (auto) 0 10 ^3/uL (0-0.8); Eosinophils % (auto) 0.1 % (0.0-7.0); Hematocrit 38.1 % (41.0-53.0); Hemoglobin 12.9 g/dL (13.5-17.5); Lymphocytes % (auto) 8.9 % (10.0-50.0); Mean Corpuscular Hemoglobin 29.8 pg (28.0-32.0); Mean Corpuscular Hgb Conc. 33.9 g/dL (32.0-36.0); Mean Corpuscular Volume 87.9 fL (80.0-100.0); Monocytes % (auto) 9.7 % (0.0-12.0); Neutrophils # (auto) 8.7 10 ^3/uL (1.6-8.6); Neutrophils % (auto) 80.9 % (37.0-80.0); Red Blood Cells 4.33 10^6/uL (4.5-5.90); Red Cell Distribution Width 12.8 % (11.8-14.3); White Blood Cell 10.8 10^3/uL (4.4-10.8)
[2021-04-30] MEDS: AMPICILLIN & SULBACTAM SODIUM 3 GM in SODIUM CHL 0.9% 100 ML IV SCH ×4 (05:17→22:53)
[2021-04-30 05:19] LABS: Albumin 2.4 g/dL (3.4-5.0); Calcium 9.1 mg/dL (8.5-10.1); Magnesium 2.4 mg/dL (1.6-2.6)
[2021-04-30 05:23] LABS: Bilirubin, Total 0.6 mg/dL (0.2-1.0); Phosphorus 2.7 mg/dL (2.5-4.90); Total Protein 7.9 g/dL (6.4-8.2)
[2021-04-30] MEDS: InsuLIN REG 1unit/0.01ml Soln (100units/ml) SC SCH ×4 (05:43→18:00)
[2021-04-30] MEDS: ENTERAL NUTRITION FORMULA GT SCH ×3 (07:45→18:05)
[2021-04-30] MEDS: LORazepam 2MG/ML-1ML VIAL IV PRN ×3 (08:27→20:58)
[2021-04-30] MEDS: VANCOMYCIN 750mg/250ml 250 ML IV SCH ×2 (08:27→20:46)
[2021-04-30] MEDS: FAMOTIDINE (10MG/ML) 2ML VL IV SCH (09:27)
[2021-04-30] MEDS ORDERED: FUROSEMIDE 20 MG/2 ML VIAL ONE (10:59)
[2021-04-30] MEDS: NOREPINEPHRINE 8 MG/250ML KIT 250 ML IV SCH (12:52)
[2021-04-30] MEDS: MIDAZOLAM DRIP 50 mg/50mL 50 ML IV SCH (12:53)
[2021-04-30] MEDS: fentaNYL Drip 2500mCg/250mlNS 250 ML IV SCH (12:53)
[2021-04-30] MEDS: MORPHINE SULFATE INJECTION 2 MG/ML SYRG IV PRN ×2 (14:03→22:40)
[2021-04-30] MEDS ORDERED: FUROSEMIDE 20 MG/2 ML VIAL IV ONE (15:00)
[2021-04-30] MEDS: PROPOFOL 100 ML IV SCH (18:05)
[2021-04-30] MEDS ORDERED: AMINO ACID INFUSION IN D10W 1,000 ML IV NR (20:00)
[2021-04-30] MEDS ORDERED: HALOPERIDOL LACTATE 5 MG/ML INJ VIAL IM PRN (20:15)
[2021-05-01] VITALS (46 sets, daily range): BP systolic 81–147; BP diastolic 23–105
[2021-05-01] MEDS: ACETAMINOPHEN 650 MG RECT SUPP PR PRN ×2 (01:59→09:35)
[2021-05-01] MEDS: MORPHINE SULFATE INJECTION 2 MG/ML SYRG IV PRN ×2 (02:42→09:36)
[2021-05-01 04:59] LABS: Albumin 2.6 g/dL (3.4-5.0); Anion Gap 11 (5-15); Blood Urea Nitrogen 21 mg/dL (7-18); Calcium 9.3 mg/dL (8.5-10.1); Carbon Dioxide 29 mmol/L (21-32); Chloride 97 mmol/L (98-107); Glucose 122 mg/dL (74-106); Potassium 3.5 mmol/L (3.5-5.1); Sodium 137 mmol/L (136-145)
[2021-05-01 05:02] LABS: GFR African American 213 mL/min; GFR Non-African American 176 mL/min; Triglycerides 68 mg/dL (< 150)
[2021-05-01 05:07] LABS: Alanine Aminotransferase 46 U/L (16-61); Alkaline Phosphatase 112 U/L (45-117); Aspartate Aminotransferase 39 U/L (15-37); Bilirubin, Total 0.4 mg/dL (0.2-1.0); Phosphorus 3.1 mg/dL (2.5-4.90); Pre Albumin 12.5 mg/dL (20.0-40.0); Total Protein 8.3 g/dL (6.4-8.2)
[2021-05-01] MEDS: AMPICILLIN & SULBACTAM SODIUM 3 GM in SODIUM CHL 0.9% 100 ML IV SCH ×3 (05:40→17:00)
[2021-05-01] MEDS: IBUPROFEN 100MG/5ML ORAL SUSP 100 MG/5 ML UD GT PRN ×2 (05:46→21:33)
[2021-05-01] MEDS: ACCU-CHEK COMFORT CURVE STRIP VI SCH ×4 (06:00→18:00)
[2021-05-01] MEDS: ACETYLCYSTEINE 10 %(100MG/ML) SOL 4ML NEB SCH ×5 (06:00→22:00)
[2021-05-01] MEDS: InsuLIN REG 1unit/0.01ml Soln (100units/ml) SC SCH ×4 (06:00→18:00)
[2021-05-01] MEDS: LORazepam 2MG/ML-1ML VIAL IV PRN (07:06)
[2021-05-01] MEDS: ENTERAL NUTRITION FORMULA GT SCH ×3 (08:00→19:00)
[2021-05-01] MEDS: FAMOTIDINE (10MG/ML) 2ML VL IV SCH (09:34)
[2021-05-01] MEDS: VANCOMYCIN 1GM/250ML 250 ML IV SCH ×2 (10:00→22:00)
[2021-05-01] MEDS ORDERED: POTASSIUM CHL 20MEQ/100ML 100 ML IV ONE (11:00)
[2021-05-01] MEDS ORDERED: LORazepam 2MG/ML-1ML VIAL IV ONE (12:45)
[2021-05-01] MEDS: NOREPINEPHRINE 8 MG/250ML KIT 250 ML IV SCH (13:30)
[2021-05-01] MEDS ORDERED: ETOMIDATE (2MG/ML) 20ML VIAL IV ONE ×2 (13:54→14:00)
[2021-05-01] MEDS ORDERED: ROCURONIUM 10MG/ML 10ML VIAL IV ONE ×2 (13:54→14:00)
[2021-05-01] MEDS: PROPOFOL 100 ML IV SCH (15:06)
[2021-05-01] MEDS: LACTATED RINGER'S 1,000 ML IV SCH (15:18)
[2021-05-01] MEDS: fentaNYL Drip 2500mCg/250mlNS 250 ML IV SCH (16:15)
[2021-05-01] MEDS: MIDAZOLAM DRIP 50 mg/50mL 50 ML IV SCH ×2 (17:30→21:34)
[2021-05-01] MEDS ORDERED: AMINO ACID INFUSION IN D10W 1,000 ML IV NR (20:00)
[2021-05-02] VITALS (87 sets, daily range): BP systolic 90–130; BP diastolic 46–83
[2021-05-02] MEDS: MIDAZOLAM DRIP 50 mg/50mL 50 ML IV SCH ×5 (00:06→22:30)
[2021-05-02] MEDS: ACCU-CHEK COMFORT CURVE STRIP VI SCH ×4 (00:08→18:00)
[2021-05-02] MEDS: AMPICILLIN & SULBACTAM SODIUM 3 GM in SODIUM CHL 0.9% 100 ML IV SCH (00:44)
[2021-05-02] MEDS: LACTATED RINGER'S 1,000 ML IV SCH ×3 (02:08→17:15)
[2021-05-02] MEDS: ACETYLCYSTEINE 10 %(100MG/ML) SOL 4ML NEB SCH ×6 (02:10→21:58)
[2021-05-02] MEDS: ALBUTEROL SULF 2.5 MG/0.5ML(0.5%) NEB SOLN NEB PRN ×6 (02:10→21:58)
[2021-05-02 04:22] LABS: Basophils # (auto) 0.1 10 ^3/uL (0-0.2); Basophils % (auto) 0.3 % (0.0-2.0); Eosinophils # (auto) 0.1 10 ^3/uL (0-0.8); Eosinophils % (auto) 0.4 % (0.0-7.0); Hematocrit 31.7 % (41.0-53.0); Hemoglobin 10.5 g/dL (13.5-17.5); Lymphocytes # (auto) 1.7 10 ^3/uL (0.4-5.4); Lymphocytes % (auto) 7.9 % (10.0-50.0); Mean Corpuscular Hemoglobin 28.9 pg (28.0-32.0); Mean Corpuscular Hgb Conc. 33.1 g/dL (32.0-36.0); Mean Corpuscular Volume 87.5 fL (80.0-100.0); Monocytes # (auto) 1.3 10 ^3/uL (0-1.3); Monocytes % (auto) 6.2 % (0.0-12.0); Neutrophils % (auto) 85.2 % (37.0-80.0); Red Blood Cells 3.62 10^6/uL (4.5-5.90); Red Cell Distribution Width 12.7 % (11.8-14.3); White Blood Cell 21.2 10^3/uL (4.4-10.8)
[2021-05-02 04:39] LABS: Albumin 1.7 g/dL (3.4-5.0); BUN/Creatinine Ratio 41.5; Calcium 8.1 mg/dL (8.5-10.1); Magnesium 1.9 mg/dL (1.6-2.6)
[2021-05-02 04:41] LABS: Bilirubin, Total 0.6 mg/dL (0.2-1.0); Phosphorus 2.5 mg/dL (2.5-4.90)
[2021-05-02 04:55] LABS: Potassium 2.6 mmol/L (3.5-5.1)
[2021-05-02] MEDS: InsuLIN REG 1unit/0.01ml Soln (100units/ml) SC SCH ×4 (06:00→18:00)
[2021-05-02] MEDS: POTASSIUM CHL 20MEQ/100ML 100 ML IV SCH ×4 (06:24→19:55)
[2021-05-02] MEDS ORDERED: TPN PER PHARMACY 0 ML IV SCH (07:15)
[2021-05-02] MEDS: ENTERAL NUTRITION FORMULA GT SCH (08:00)
[2021-05-02 09:04] LABS: Basophils # (auto) 0 10 ^3/uL (0-0.2); Basophils % (auto) 0.2 % (0.0-2.0); Eosinophils # (auto) 0.1 10 ^3/uL (0-0.8); Eosinophils % (auto) 0.5 % (0.0-7.0); Hematocrit 28.7 % (41.0-53.0); Hemoglobin 9.6 g/dL (13.5-17.5); Lymphocytes # (auto) 1.9 10 ^3/uL (0.4-5.4); Lymphocytes % (auto) 9.5 % (10.0-50.0); Mean Corpuscular Hemoglobin 29.5 pg (28.0-32.0); Mean Corpuscular Hgb Conc. 33.6 g/dL (32.0-36.0); Mean Corpuscular Volume 87.7 fL (80.0-100.0); Monocytes # (auto) 1.3 10 ^3/uL (0-1.3); Monocytes % (auto) 6.5 % (0.0-12.0); Neutrophils # (auto) 16.8 10 ^3/uL (1.6-8.6); Neutrophils % (auto) 83.3 % (37.0-80.0); Red Blood Cells 3.27 10^6/uL (4.5-5.90); Red Cell Distribution Width 12.6 % (11.8-14.3); White Blood Cell 20.1 10^3/uL (4.4-10.8)
[2021-05-02] MEDS: FAMOTIDINE (10MG/ML) 2ML VL IV SCH (09:58)
[2021-05-02] MEDS: VANCOMYCIN 1GM/250ML 250 ML IV SCH ×2 (10:25→22:29)
[2021-05-02] MEDS: NOREPINEPHRINE 8 MG/250ML KIT 250 ML IV SCH (13:30)
[2021-05-02] MEDS: MEROPENEM 1GM IVPB 100 ML IV SCH (15:24)
[2021-05-02] MEDS: fentaNYL Drip 2500mCg/250mlNS 250 ML IV SCH (17:49)
[2021-05-02] MEDS: PROPOFOL 100 ML IV SCH ×2 (18:00→22:32)
[2021-05-02] MEDS ORDERED: PPN PER PHARMACY IV NR ×9 (20:00)
[2021-05-03] VITALS (107 sets, daily range): BP systolic 78–125; BP diastolic 37–80
[2021-05-03] MEDS: InsuLIN REG 1unit/0.01ml Soln (100units/ml) SC SCH ×4 (00:07→17:40)
[2021-05-03] MEDS: ACCU-CHEK COMFORT CURVE STRIP VI SCH ×4 (00:07→17:33)
[2021-05-03] MEDS: MEROPENEM 1GM IVPB 100 ML IV SCH ×3 (00:07→13:32)
[2021-05-03] MEDS: ACETYLCYSTEINE 10 %(100MG/ML) SOL 4ML NEB SCH ×6 (01:55→22:00)
[2021-05-03] MEDS: ALBUTEROL SULF 2.5 MG/0.5ML(0.5%) NEB SOLN NEB PRN ×4 (01:55→14:10)
[2021-05-03 04:11] LABS: Basophils # (auto) 0 10 ^3/uL (0-0.2); Basophils % (auto) 0.2 % (0.0-2.0); Eosinophils # (auto) 0.1 10 ^3/uL (0-0.8); Eosinophils % (auto) 0.5 % (0.0-7.0); Hematocrit 26.3 % (41.0-53.0); Hemoglobin 8.8 g/dL (13.5-17.5); Lymphocytes # (auto) 1.9 10 ^3/uL (0.4-5.4); Lymphocytes % (auto) 14.4 % (10.0-50.0); Mean Corpuscular Hemoglobin 29.1 pg (28.0-32.0); Mean Corpuscular Hgb Conc. 33.6 g/dL (32.0-36.0); Mean Corpuscular Volume 86.7 fL (80.0-100.0); Monocytes # (auto) 0.8 10 ^3/uL (0-1.3); Monocytes % (auto) 6.3 % (0.0-12.0); Neutrophils # (auto) 10.3 10 ^3/uL (1.6-8.6); Neutrophils % (auto) 78.6 % (37.0-80.0); Red Blood Cells 3.03 10^6/uL (4.5-5.90); Red Cell Distribution Width 12.7 % (11.8-14.3)
[2021-05-03] MEDS: LACTATED RINGER'S 1,000 ML IV SCH ×3 (04:29→17:33)
[2021-05-03 04:32] LABS: Albumin 1.6 g/dL (3.4-5.0); Calcium 8.1 mg/dL (8.5-10.1); Magnesium 2.1 mg/dL (1.6-2.6); Potassium 3.4 mmol/L (3.5-5.1)
[2021-05-03 04:34] LABS: BUN/Creatinine Ratio 21.9
[2021-05-03 04:37] LABS: Bilirubin, Total 0.4 mg/dL (0.2-1.0); Phosphorus 2.6 mg/dL (2.5-4.90); Total Protein 5.9 g/dL (6.4-8.2)
[2021-05-03] MEDS: MIDAZOLAM DRIP 50 mg/50mL 50 ML IV SCH ×2 (05:17→20:44)
[2021-05-03] MEDS ORDERED: POTASSIUM PHOSP 22MEQ(15MMOLE) in NS 100 ML IV ONE (09:15)
[2021-05-03] MEDS: VANCOMYCIN 1GM/250ML 250 ML IV SCH ×2 (10:12→20:43)
[2021-05-03] MEDS: FAMOTIDINE (10MG/ML) 2ML VL IV SCH (10:13)
[2021-05-03] MEDS: NOREPINEPHRINE 8 MG/250ML KIT 250 ML IV SCH (11:41)
[2021-05-03] MEDS: fentaNYL Drip 2500mCg/250mlNS 250 ML IV SCH (16:15)
[2021-05-03] MEDS ORDERED: ALBUMIN 25% 100 ML IV ONE (17:45)
[2021-05-03] MEDS ORDERED: PPN PER PHARMACY IV NR ×9 (20:00)
[2021-05-04] VITALS (103 sets, daily range): BP systolic 80–134; BP diastolic 39–88
[2021-05-04] MEDS: MEROPENEM 1GM IVPB 100 ML IV SCH ×4 (01:53→21:51)
[2021-05-04] MEDS: ACETYLCYSTEINE 10 %(100MG/ML) SOL 4ML NEB SCH ×6 (02:00→22:07)
[2021-05-04 04:24] LABS: Calcium 8.1 mg/dL (8.5-10.1); Magnesium 2.2 mg/dL (1.6-2.6)
[2021-05-04 04:27] LABS: Bilirubin, Total 0.4 mg/dL (0.2-1.0); Phosphorus 3.6 mg/dL (2.5-4.90); Total Protein 6.4 g/dL (6.4-8.2)
[2021-05-04 04:49] LABS: Basophils # (auto) 0.1 10 ^3/uL (0-0.2); Eosinophils # (auto) 0.3 10 ^3/uL (0-0.8); Eosinophils % (auto) 2.9 % (0.0-7.0); Hematocrit 24.9 % (41.0-53.0); Hemoglobin 8.5 g/dL (13.5-17.5); Lymphocytes # (auto) 1.4 10 ^3/uL (0.4-5.4); Lymphocytes % (auto) 11.7 % (10.0-50.0); Mean Corpuscular Hemoglobin 29.4 pg (28.0-32.0); Mean Corpuscular Volume 86.4 fL (80.0-100.0); Monocytes # (auto) 0.6 10 ^3/uL (0-1.3); Monocytes % (auto) 4.9 % (0.0-12.0); Neutrophils # (auto) 9.2 10 ^3/uL (1.6-8.6); Neutrophils % (auto) 79.5 % (37.0-80.0); Red Blood Cells 2.88 10^6/uL (4.5-5.90); Red Cell Distribution Width 12.8 % (11.8-14.3); White Blood Cell 11.6 10^3/uL (4.4-10.8)
[2021-05-04] MEDS: ACETAMINOPHEN 650 MG RECT SUPP PR PRN (05:08)
[2021-05-04] MEDS: MIDAZOLAM DRIP 50 mg/50mL 50 ML IV SCH ×2 (05:10→17:20)
[2021-05-04] MEDS: ACCU-CHEK COMFORT CURVE STRIP VI SCH ×5 (05:56→23:33)
[2021-05-04] MEDS: InsuLIN REG 1unit/0.01ml Soln (100units/ml) SC SCH ×5 (05:56→23:33)
[2021-05-04] MEDS: ALBUTEROL SULF 2.5 MG/0.5ML(0.5%) NEB SOLN NEB PRN ×5 (06:34→22:07)
[2021-05-04] MEDS: LACTATED RINGER'S 1,000 ML IV SCH ×2 (07:24→21:51)
[2021-05-04] MEDS: PROPOFOL 100 ML IV SCH ×2 (08:14→17:21)
[2021-05-04] MEDS: VANCOMYCIN 1GM/250ML 250 ML IV SCH ×2 (10:00→12:40)
[2021-05-04] MEDS: FAMOTIDINE (10MG/ML) 2ML VL IV SCH (10:47)
[2021-05-04] MEDS: NOREPINEPHRINE 8 MG/250ML KIT 250 ML IV SCH (13:30)
[2021-05-04] MEDS: fentaNYL Drip 2500mCg/250mlNS 250 ML IV SCH (16:15)
[2021-05-04] MEDS ORDERED: TPN PER PHARMACY IV NR ×8 (20:00)
[2021-05-04] MEDS: VANCOMYCIN 750mg/250ml 250 ML IV SCH (20:29)
[2021-05-05] VITALS (105 sets, daily range): BP systolic 76–123; BP diastolic 32–80
[2021-05-05] MEDS: ALBUTEROL SULF 2.5 MG/0.5ML(0.5%) NEB SOLN NEB PRN ×3 (02:04→10:22)
[2021-05-05] MEDS: ACETYLCYSTEINE 10 %(100MG/ML) SOL 4ML NEB SCH ×3 (02:05→10:22)
[2021-05-05 04:30] LABS: Albumin 1.8 g/dL (3.4-5.0); BUN/Creatinine Ratio 43.5; Calcium 8.3 mg/dL (8.5-10.1); Magnesium 2.1 mg/dL (1.6-2.6)
[2021-05-05 04:33] LABS: Bilirubin, Total 0.3 mg/dL (0.2-1.0); Total Protein 6.7 g/dL (6.4-8.2)
[2021-05-05 04:57] LABS: Phosphorus 3.3 mg/dL (2.5-4.90)
[2021-05-05 05:43] LABS: Hematocrit 25.8 % (41.0-53.0); Hemoglobin 8.9 g/dL (13.5-17.5); Mean Corpuscular Hgb Conc. 34.3 g/dL (32.0-36.0); Mean Corpuscular Volume 87.5 fL (80.0-100.0); Red Blood Cells 2.95 10^6/uL (4.5-5.90); Red Cell Distribution Width 12.8 % (11.8-14.3); White Blood Cell 10.5 10^3/uL (4.4-10.8)
[2021-05-05] MEDS: ACCU-CHEK COMFORT CURVE STRIP VI SCH ×4 (05:47→23:54)
[2021-05-05] MEDS: InsuLIN REG 1unit/0.01ml Soln (100units/ml) SC SCH ×4 (05:47→23:55)
[2021-05-05] MEDS: MEROPENEM 1GM IVPB 100 ML IV SCH ×3 (05:47→21:42)
[2021-05-05] MEDS: fentaNYL Drip 2500mCg/250mlNS 250 ML IV SCH (05:51)
[2021-05-05] MEDS: PROPOFOL 100 ML IV SCH ×3 (05:52→17:57)
[2021-05-05] MEDS: MIDAZOLAM DRIP 50 mg/50mL 50 ML IV SCH ×3 (05:53→19:57)
[2021-05-05 06:03] LABS: Band Neutrophils % (manual) 0; Basophils % (manual) 0 (0.0-2.0); Blast Cells 0; Metamyelocytes % 0; Myelocytes % 0; Promyelocytes % 0; Reactive Lymphocytes 0
[2021-05-05] MEDS: VANCOMYCIN 750mg/250ml 250 ML IV SCH ×2 (08:43→17:56)
[2021-05-05] MEDS: FAMOTIDINE (10MG/ML) 2ML VL IV SCH (09:40)
[2021-05-05] MEDS: ACETAMINOPHEN 650 MG RECT SUPP PR PRN ×2 (09:41→23:51)
[2021-05-05] MEDS: NOREPINEPHRINE 8 MG/250ML KIT 250 ML IV SCH (09:42)
[2021-05-05 10:58] LABS: Eosinophils % (manual) 4 (0-7); Lymphocytes % (manual) 27 (10.0-50.0); Monocytes % (manual) 3 (0-12)
[2021-05-05] MEDS ORDERED: TPN PER PHARMACY IV NR ×7 (20:00)
[2021-05-06] VITALS (102 sets, daily range): BP systolic 80–134; BP diastolic 38–98
[2021-05-06] MEDS: VANCOMYCIN 750mg/250ml 250 ML IV SCH ×4 (03:42→23:30)
[2021-05-06] MEDS: PROPOFOL 100 ML IV SCH ×3 (04:00→21:14)
[2021-05-06] MEDS: MIDAZOLAM DRIP 50 mg/50mL 50 ML IV SCH ×2 (04:01→21:15)
[2021-05-06 04:48] LABS: Albumin 1.8 g/dL (3.4-5.0); Magnesium 2.6 mg/dL (1.6-2.6); Potassium 3.9 mmol/L (3.5-5.1)
[2021-05-06 04:51] LABS: BUN/Creatinine Ratio 59.3; Bilirubin, Total 0.3 mg/dL (0.2-1.0); Phosphorus 2.3 mg/dL (2.5-4.90)
[2021-05-06] MEDS: ACCU-CHEK COMFORT CURVE STRIP VI SCH ×3 (05:42→18:07)
[2021-05-06] MEDS: MEROPENEM 1GM IVPB 100 ML IV SCH ×3 (05:42→23:30)
[2021-05-06] MEDS: InsuLIN REG 1unit/0.01ml Soln (100units/ml) SC SCH ×3 (05:43→18:00)
[2021-05-06] MEDS: fentaNYL Drip 2500mCg/250mlNS 250 ML IV SCH (08:30)
[2021-05-06] MEDS ORDERED: SODIUM PHOSPHATES 20 MEQ in SODIUM CHL 0.9% 100 ML IV ONE (09:30)
[2021-05-06] MEDS: FAMOTIDINE (10MG/ML) 2ML VL IV SCH (09:42)
[2021-05-06] MEDS ORDERED: POTASSIUM PHOSP 22MEQ(15MMOLE) in NS 100 ML IV ONE (12:00)
[2021-05-06] MEDS: NOREPINEPHRINE 8 MG/250ML KIT 250 ML IV SCH (13:30)
[2021-05-06] MEDS: ACETAMINOPHEN 650 MG RECT SUPP PR PRN (14:06)
[2021-05-06] MEDS ORDERED: POTASSIUM PHOSPHATE IV NR ×8 (20:00)
[2021-05-06] MEDS ORDERED: SODIUM CHLORIDE IV NR ×8 (20:00)
[2021-05-06] MEDS ORDERED: POTASSIUM ACETATE IV NR ×8 (20:00)
[2021-05-06] MEDS ORDERED: [UNRECOGNIZED DRUG - OTHER] IV NR ×8 (20:00)
[2021-05-07] VITALS (92 sets, daily range): BP systolic 84–134; BP diastolic 41–86
[2021-05-07] MEDS: ACCU-CHEK COMFORT CURVE STRIP VI SCH ×4 (00:16→18:00)
[2021-05-07] MEDS: ACETAMINOPHEN 650 MG RECT SUPP PR PRN ×2 (00:20→21:00)
[2021-05-07 05:30] LABS: Red Blood Cells 2.72 10^6/uL (4.5-5.90)
[2021-05-07 05:32] LABS: Hematocrit 23.6 % (41.0-53.0); Mean Corpuscular Hemoglobin 29.5 pg (28.0-32.0); Mean Corpuscular Hgb Conc. 34.2 g/dL (32.0-36.0); Mean Corpuscular Volume 86.5 fL (80.0-100.0); Red Cell Distribution Width 12.7 % (11.8-14.3); White Blood Cell 9.4 10^3/uL (4.4-10.8)
[2021-05-07 05:52] LABS: Potassium 3.3 mmol/L (3.5-5.1)
[2021-05-07] MEDS: InsuLIN REG 1unit/0.01ml Soln (100units/ml) SC SCH ×4 (06:00→18:00)
[2021-05-07 06:02] LABS: Albumin 1.7 g/dL (3.4-5.0); Bilirubin, Total 0.4 mg/dL (0.2-1.0); Calcium 7.9 mg/dL (8.5-10.1); Phosphorus 2.5 mg/dL (2.5-4.90); Total Protein 6.6 g/dL (6.4-8.2)
[2021-05-07 06:06] LABS: Band Neutrophils % (manual) 0; Basophils % (manual) 0 (0.0-2.0); Blast Cells 0; Promyelocytes % 0; Reactive Lymphocytes 0
[2021-05-07] MEDS: MEROPENEM 1GM IVPB 100 ML IV SCH ×3 (06:21→22:17)
[2021-05-07] MEDS: PROPOFOL 100 ML IV SCH ×2 (06:45→13:05)
[2021-05-07] MEDS: MIDAZOLAM DRIP 50 mg/50mL 50 ML IV SCH ×2 (06:46→09:52)
[2021-05-07 07:35] LABS: Eosinophils % (manual) 2 (0-7); Lymphocytes % (manual) 25 (10.0-50.0); Metamyelocytes % 1; Monocytes % (manual) 5 (0-12); Myelocytes % 2
[2021-05-07] MEDS ORDERED: POTASSIUM PHOSPHATE 22 MEQ in SODIUM CHL 0.9% 100 ML IV ONE (09:00)
[2021-05-07] MEDS: FAMOTIDINE (10MG/ML) 2ML VL IV SCH (09:59)
[2021-05-07] MEDS: POTASSIUM CHL 20MEQ/100ML 100 ML IV SCH ×2 (10:33→12:42)
[2021-05-07] MEDS ORDERED: SODIUM CHLORIDE 0.9% 1,000 ML IV ONE (11:15)
[2021-05-07] MEDS: fentaNYL Drip 2500mCg/250mlNS 250 ML IV SCH (13:04)
[2021-05-07] MEDS: NOREPINEPHRINE 8 MG/250ML KIT 250 ML IV SCH (13:30)
[2021-05-07] MEDS ORDERED: TPN PER PHARMACY IV NR ×8 (20:00)
[2021-05-08] VITALS (51 sets, daily range): BP systolic 90–214; BP diastolic 46–161
[2021-05-08] MEDS: ACCU-CHEK COMFORT CURVE STRIP VI SCH ×5 (00:09→23:41)
[2021-05-08] MEDS: ACETAMINOPHEN 650 MG RECT SUPP PR PRN ×2 (03:46→18:09)
[2021-05-08 04:40] LABS: Hematocrit 22.1 % (41.0-53.0); Hemoglobin 7.7 g/dL (13.5-17.5); Mean Corpuscular Hemoglobin 30.4 pg (28.0-32.0); Mean Corpuscular Hgb Conc. 34.9 g/dL (32.0-36.0); Mean Corpuscular Volume 87.2 fL (80.0-100.0); Red Blood Cells 2.53 10^6/uL (4.5-5.90); Red Cell Distribution Width 12.6 % (11.8-14.3); White Blood Cell 9.2 10^3/uL (4.4-10.8)
[2021-05-08 05:02] LABS: Basophils % (manual) 0 (0.0-2.0); Blast Cells 0; Promyelocytes % 0; Reactive Lymphocytes 0
[2021-05-08 05:20] LABS: Albumin 1.7 g/dL (3.4-5.0); Calcium 7.7 mg/dL (8.5-10.1); Potassium 3.8 mmol/L (3.5-5.1)
[2021-05-08] MEDS: InsuLIN REG 1unit/0.01ml Soln (100units/ml) SC SCH ×5 (05:23→23:41)
[2021-05-08 05:27] LABS: BUN/Creatinine Ratio 79.2; Bilirubin, Total 0.6 mg/dL (0.2-1.0); Phosphorus 2.7 mg/dL (2.5-4.90); Pre Albumin 24.2 mg/dL (20.0-40.0); Total Protein 6.6 g/dL (6.4-8.2)
[2021-05-08] MEDS: MEROPENEM 1GM IVPB 100 ML IV SCH ×3 (05:59→23:41)
[2021-05-08 07:20] LABS: Band Neutrophils % (manual) 7; Eosinophils % (manual) 2 (0-7); Lymphocytes % (manual) 31 (10.0-50.0); Metamyelocytes % 1; Monocytes % (manual) 6 (0-12); Myelocytes % 1
[2021-05-08] MEDS: FAMOTIDINE (10MG/ML) 2ML VL IV SCH (10:00)
[2021-05-08] MEDS ORDERED: BENZOCAINE (DENTAL) 20 % SPRAY 60ML MT ONE (12:11)
[2021-05-08] MEDS ORDERED: SODIUM CHLORIDE LOCK 10 ML ONE (12:11)
[2021-05-08] MEDS ORDERED: LIDOCAINE HCL 2% TOP JELLY 5ML TOP ONE (12:11)
[2021-05-08] MEDS ORDERED: MIDAZOLAM HCL 5 MG/ML-1ML VIAL ONE (12:11)
[2021-05-08] MEDS ORDERED: LIDOCAINE 2%HCL (LOCAL ANESTH.) INJ 20ML MDV ONE (12:11)
[2021-05-08] MEDS ORDERED: fentaNYL CITRATE 100 MCG/2 ML VL ONE (12:13)
[2021-05-08] MEDS ORDERED: EPINEPHrine HCL 1 MG/1 ML AMP ONE (12:13)
[2021-05-08] MEDS: NOREPINEPHRINE 8 MG/250ML KIT 250 ML IV SCH (13:19)
[2021-05-08] MEDS: fentaNYL Drip 2500mCg/250mlNS 250 ML IV SCH (16:15)
[2021-05-08] MEDS: MIDAZOLAM DRIP 50 mg/50mL 50 ML IV SCH (16:15)
[2021-05-08] MEDS: PROPOFOL 100 ML IV SCH ×2 (18:04→22:56)
[2021-05-08] MEDS ORDERED: TPN PER PHARMACY IV NR ×9 (20:00)
[2021-05-09] VITALS (99 sets, daily range): BP systolic 86–159; BP diastolic 49–89
[2021-05-09 04:43] LABS: Basophils # (auto) 0.1 10 ^3/uL (0-0.2); Basophils % (auto) 0.5 % (0.0-2.0); Eosinophils # (auto) 0.2 10 ^3/uL (0-0.8); Eosinophils % (auto) 1.7 % (0.0-7.0); Hematocrit 26.6 % (41.0-53.0); Hemoglobin 9.1 g/dL (13.5-17.5); Lymphocytes # (auto) 1.3 10 ^3/uL (0.4-5.4); Lymphocytes % (auto) 13.4 % (10.0-50.0); Mean Corpuscular Hemoglobin 29.6 pg (28.0-32.0); Mean Corpuscular Hgb Conc. 34.3 g/dL (32.0-36.0); Mean Corpuscular Volume 86.3 fL (80.0-100.0); Monocytes # (auto) 0.9 10 ^3/uL (0-1.3); Monocytes % (auto) 9.3 % (0.0-12.0); Neutrophils # (auto) 7.6 10 ^3/uL (1.6-8.6); Neutrophils % (auto) 75.1 % (37.0-80.0); Nucleated Red Blood Cells % 0.1 %; Red Blood Cells 3.08 10^6/uL (4.5-5.90); Red Cell Distribution Width 13.1 % (11.8-14.3); White Blood Cell 10.1 10^3/uL (4.4-10.8)
[2021-05-09 05:08] LABS: Albumin 2.1 g/dL (3.4-5.0); Calcium 8.3 mg/dL (8.5-10.1); Magnesium 2.1 mg/dL (1.6-2.6); Potassium 3.7 mmol/L (3.5-5.1)
[2021-05-09 05:11] LABS: Bilirubin, Total 0.7 mg/dL (0.2-1.0); Phosphorus 2.7 mg/dL (2.5-4.90); Total Protein 7.7 g/dL (6.4-8.2)
[2021-05-09] MEDS: ACCU-CHEK COMFORT CURVE STRIP VI SCH ×3 (06:00→18:22)
[2021-05-09] MEDS: InsuLIN REG 1unit/0.01ml Soln (100units/ml) SC SCH ×3 (06:43→18:00)
[2021-05-09] MEDS: MEROPENEM 1GM IVPB 100 ML IV SCH ×3 (06:43→23:05)
[2021-05-09] MEDS: FAMOTIDINE (10MG/ML) 2ML VL IV SCH (09:29)
[2021-05-09] MEDS ORDERED: METOCLOPRAMIDE HCL 5MG/ml INJ 2ml VIAL IV ONE (10:00)
[2021-05-09] MEDS: PROPOFOL 100 ML IV SCH (10:15)
[2021-05-09] MEDS: ACETAMINOPHEN 650 MG RECT SUPP PR PRN (11:45)
[2021-05-09] MEDS: NOREPINEPHRINE 8 MG/250ML KIT 250 ML IV SCH (12:23)
[2021-05-09] MEDS: MIDAZOLAM DRIP 50 mg/50mL 50 ML IV SCH (16:15)
[2021-05-09] MEDS: fentaNYL Drip 2500mCg/250mlNS 250 ML IV SCH (16:15)
[2021-05-09] MEDS: METOCLOPRAMIDE HCL 5MG/ml INJ 2ml VIAL IV SCH (18:22)
[2021-05-09] MEDS ORDERED: TPN PER PHARMACY IV NR ×8 (20:00)
[2021-05-10] VITALS (100 sets, daily range): BP systolic 85–135; BP diastolic 47–97
[2021-05-10] MEDS: ACCU-CHEK COMFORT CURVE STRIP VI SCH ×5 (00:02→23:47)
[2021-05-10] MEDS: fentaNYL Drip 2500mCg/250mlNS 250 ML IV SCH ×2 (00:04→22:07)
[2021-05-10] MEDS: METOCLOPRAMIDE HCL 5MG/ml INJ 2ml VIAL IV SCH ×3 (02:30→18:05)
[2021-05-10 04:48] LABS: Calcium 8.4 mg/dL (8.5-10.1); Potassium 3.9 mmol/L (3.5-5.1)
[2021-05-10 04:51] LABS: BUN/Creatinine Ratio 90.9; Magnesium 2.1 mg/dL (1.6-2.6)
[2021-05-10 04:53] LABS: Bilirubin, Total 0.8 mg/dL (0.2-1.0); Phosphorus 3.3 mg/dL (2.5-4.90); Total Protein 7.7 g/dL (6.4-8.2)
[2021-05-10] MEDS: InsuLIN REG 1unit/0.01ml Soln (100units/ml) SC SCH ×5 (06:00→23:47)
[2021-05-10] MEDS: MEROPENEM 1GM IVPB 100 ML IV SCH ×3 (06:19→22:24)
[2021-05-10] MEDS: MIDAZOLAM DRIP 50 mg/50mL 50 ML IV SCH ×3 (09:15→22:08)
[2021-05-10] MEDS: PROPOFOL 100 ML IV SCH ×3 (09:15→22:07)
[2021-05-10] MEDS: FAMOTIDINE (10MG/ML) 2ML VL IV SCH (10:24)
[2021-05-10] MEDS: ACETAMINOPHEN 650 MG RECT SUPP PR PRN (11:55)
[2021-05-10] MEDS: NOREPINEPHRINE 8 MG/250ML KIT 250 ML IV SCH (13:02)
[2021-05-10] MEDS ORDERED: levoFLOXacin 500MG 100 ML IV ONE (14:00)
[2021-05-10] MEDS ORDERED: FLUCONAZOLE 200MG/100ML 100 ML IV ONE (17:30)
[2021-05-10] MEDS ORDERED: TPN PER PHARMACY IV NR ×7 (20:00)
[2021-05-11] VITALS (103 sets, daily range): BP systolic 91–143; BP diastolic 54–91
[2021-05-11] MEDS: METOCLOPRAMIDE HCL 5MG/ml INJ 2ml VIAL IV SCH ×3 (02:00→17:41)
[2021-05-11 05:14] LABS: Basophils # (auto) 0.1 10 ^3/uL (0-0.2); Basophils % (auto) 0.7 % (0.0-2.0); Eosinophils # (auto) 0.3 10 ^3/uL (0-0.8); Eosinophils % (auto) 3.1 % (0.0-7.0); Hematocrit 28.8 % (41.0-53.0); Hemoglobin 9.5 g/dL (13.5-17.5); Lymphocytes # (auto) 1.8 10 ^3/uL (0.4-5.4); Lymphocytes % (auto) 18.9 % (10.0-50.0); Mean Corpuscular Hemoglobin 28.9 pg (28.0-32.0); Mean Corpuscular Hgb Conc. 33.1 g/dL (32.0-36.0); Mean Corpuscular Volume 87.2 fL (80.0-100.0); Monocytes # (auto) 1.1 10 ^3/uL (0-1.3); Neutrophils # (auto) 6.2 10 ^3/uL (1.6-8.6); Neutrophils % (auto) 65.3 % (37.0-80.0); Red Cell Distribution Width 13.6 % (11.8-14.3); White Blood Cell 9.5 10^3/uL (4.4-10.8)
[2021-05-11 05:32] LABS: Potassium 3.9 mmol/L (3.5-5.1)
[2021-05-11] MEDS: ACCU-CHEK COMFORT CURVE STRIP VI SCH ×3 (05:40→17:41)
[2021-05-11] MEDS: MEROPENEM 1GM IVPB 100 ML IV SCH (05:40)
[2021-05-11] MEDS: InsuLIN REG 1unit/0.01ml Soln (100units/ml) SC SCH ×3 (05:40→17:41)
[2021-05-11 05:43] LABS: Albumin 2.1 g/dL (3.4-5.0); Calcium 8.4 mg/dL (8.5-10.1); Magnesium 2.7 mg/dL (1.6-2.6); Phosphorus 4.1 mg/dL (2.5-4.90); Total Protein 7.9 g/dL (6.4-8.2)
[2021-05-11] MEDS: FAMOTIDINE (10MG/ML) 2ML VL IV SCH (09:52)
[2021-05-11] MEDS ORDERED: levoFLOXacin 500MG 100 ML IV SCH (10:00)
[2021-05-11] MEDS: ACETAMINOPHEN 650 MG RECT SUPP PR PRN (11:45)
[2021-05-11] MEDS: NOREPINEPHRINE 8 MG/250ML KIT 250 ML IV SCH (13:30)
[2021-05-11] MEDS ORDERED: LACTULOSE 20Gm/30ML SOLN PO ONE (14:00)
[2021-05-11] MEDS ORDERED: CEFTAZIDIME AVIBACTAM IV SCH (14:00)
[2021-05-11] MEDS ORDERED: D5W IV SCH (14:00)
[2021-05-11] MEDS: CEFTAZIDIME-AVIBACTAM 2.5gm in D5W 100 ML IV SCH ×2 (14:50→22:00)
[2021-05-11] MEDS ORDERED: GENTAMICIN SULFATE 240 MG in D5W 5% 100 ML IV ONE (16:00)
[2021-05-11] MEDS: LACTULOSE 20Gm/30ML SOLN PO SCH (17:41)
[2021-05-11] MEDS: PROPOFOL 100 ML IV SCH (19:00)
[2021-05-11] MEDS ORDERED: TPN PER PHARMACY IV NR ×12 (20:00)
[2021-05-11] MEDS: FLUCONAZOLE 200MG/100ML 100 ML IV SCH (20:27)
[2021-05-12] VITALS (104 sets, daily range): BP systolic 92–139; BP diastolic 53–97
[2021-05-12] MEDS: LACTULOSE 20Gm/30ML SOLN PO SCH ×2 (00:19→06:00)
[2021-05-12] MEDS: ACCU-CHEK COMFORT CURVE STRIP VI SCH ×4 (00:19→18:21)
[2021-05-12] MEDS: METOCLOPRAMIDE HCL 5MG/ml INJ 2ml VIAL IV SCH ×3 (02:02→18:00)
[2021-05-12] MEDS: PROPOFOL 100 ML IV SCH ×3 (04:00→18:15)
[2021-05-12] MEDS: MIDAZOLAM DRIP 50 mg/50mL 50 ML IV SCH ×2 (04:00→11:30)
[2021-05-12] MEDS: fentaNYL Drip 2500mCg/250mlNS 250 ML IV SCH (04:00)
[2021-05-12 04:46] LABS: Basophils # (auto) 0 10 ^3/uL (0-0.2); Basophils % (auto) 0.4 % (0.0-2.0); Eosinophils # (auto) 0.1 10 ^3/uL (0-0.8); Eosinophils % (auto) 0.9 % (0.0-7.0); Hematocrit 28.5 % (41.0-53.0); Hemoglobin 9.5 g/dL (13.5-17.5); Lymphocytes # (auto) 1.3 10 ^3/uL (0.4-5.4); Lymphocytes % (auto) 15.9 % (10.0-50.0); Mean Corpuscular Hemoglobin 28.9 pg (28.0-32.0); Mean Corpuscular Hgb Conc. 33.2 g/dL (32.0-36.0); Mean Corpuscular Volume 86.9 fL (80.0-100.0); Monocytes # (auto) 0.8 10 ^3/uL (0-1.3); Monocytes % (auto) 9.7 % (0.0-12.0); Neutrophils # (auto) 5.8 10 ^3/uL (1.6-8.6); Neutrophils % (auto) 73.1 % (37.0-80.0); Red Blood Cells 3.28 10^6/uL (4.5-5.90); Red Cell Distribution Width 13.5 % (11.8-14.3)
[2021-05-12] MEDS: InsuLIN REG 1unit/0.01ml Soln (100units/ml) SC SCH ×4 (06:00→18:00)
[2021-05-12] MEDS: CEFTAZIDIME-AVIBACTAM 2.5gm in D5W 100 ML IV SCH ×3 (06:00→22:00)
[2021-05-12] MEDS: FAMOTIDINE (10MG/ML) 2ML VL IV SCH (09:35)
[2021-05-12 10:31] LABS: Albumin 2.1 g/dL (3.4-5.0); Calcium 8.8 mg/dL (8.5-10.1); Magnesium 2.4 mg/dL (1.6-2.6); Potassium 3.4 mmol/L (3.5-5.1)
[2021-05-12 10:33] LABS: BUN/Creatinine Ratio 47.2; Bilirubin, Total 1.2 mg/dL (0.2-1.0); Phosphorus 2.7 mg/dL (2.5-4.90)
[2021-05-12] MEDS ORDERED: POTASSIUM PHOSPHATE 22 MEQ in SODIUM CHL 0.9% 100 ML IV ONE (12:00)
[2021-05-12] MEDS ORDERED: LACTATED RINGER'S 1,000 ML IV SCH (12:00)
[2021-05-12] MEDS: NOREPINEPHRINE 8 MG/250ML KIT 250 ML IV SCH (13:30)
[2021-05-12] MEDS ORDERED: TPN PER PHARMACY IV NR ×5 (20:00)
[2021-05-12] MEDS: FLUCONAZOLE 200MG/100ML 100 ML IV SCH (20:22)
[2021-05-13] VITALS (102 sets, daily range): BP systolic 100–134; BP diastolic 59–97
[2021-05-13] MEDS: METOCLOPRAMIDE HCL 5MG/ml INJ 2ml VIAL IV SCH ×3 (01:53→17:37)
[2021-05-13] MEDS: ACCU-CHEK COMFORT CURVE STRIP VI SCH ×4 (06:00→17:38)
[2021-05-13] MEDS: InsuLIN REG 1unit/0.01ml Soln (100units/ml) SC SCH ×4 (06:00→17:37)
[2021-05-13 06:29] LABS: Potassium 3.4 mmol/L (3.5-5.1)
[2021-05-13] MEDS: CEFTAZIDIME-AVIBACTAM 2.5gm in D5W 100 ML IV SCH ×3 (06:29→23:20)
[2021-05-13 06:45] LABS: Albumin 1.9 g/dL (3.4-5.0); BUN/Creatinine Ratio 57.1; Bilirubin, Total 1.8 mg/dL (0.2-1.0); Calcium 8.7 mg/dL (8.5-10.1); Magnesium 1.7 mg/dL (1.6-2.6); Total Protein 7.4 g/dL (6.4-8.2)
[2021-05-13] MEDS: MIDAZOLAM DRIP 50 mg/50mL 50 ML IV SCH (08:08)
[2021-05-13] MEDS: FAMOTIDINE (10MG/ML) 2ML VL IV SCH (09:29)
[2021-05-13] MEDS ORDERED: POTASSIUM PHOSP 22MEQ(15MMOLE) in NS 100 ML IV ONE (10:00)
[2021-05-13] MEDS: PROPOFOL 100 ML IV SCH ×2 (11:02→18:49)
[2021-05-13] MEDS: NOREPINEPHRINE 8 MG/250ML KIT 250 ML IV SCH (12:00)
[2021-05-13] MEDS: ACETAMINOPHEN 650 mg PER 20.3 mL UD GT PRN (18:49)
[2021-05-13] MEDS: fentaNYL Drip 2500mCg/250mlNS 250 ML IV SCH (18:54)
[2021-05-13] MEDS: FLUCONAZOLE 200MG/100ML 100 ML IV SCH (20:18)
[2021-05-13] MEDS: TPN PER PHARMACY IV NR ×7 (20:20)
[2021-05-14] VITALS (103 sets, daily range): BP systolic 91–141; BP diastolic 63–94
[2021-05-14] MEDS: METOCLOPRAMIDE HCL 5MG/ml INJ 2ml VIAL IV SCH ×3 (02:00→18:01)
[2021-05-14] MEDS: PROPOFOL 100 ML IV SCH ×3 (02:00→22:30)
[2021-05-14 04:15] LABS: Basophils # (auto) 0 10 ^3/uL (0-0.2); Basophils % (auto) 0.4 % (0.0-2.0); Eosinophils # (auto) 0.2 10 ^3/uL (0-0.8); Eosinophils % (auto) 2.3 % (0.0-7.0); Hematocrit 28.6 % (41.0-53.0); Hemoglobin 9.5 g/dL (13.5-17.5); Lymphocytes # (auto) 1.2 10 ^3/uL (0.4-5.4); Lymphocytes % (auto) 12.2 % (10.0-50.0); Mean Corpuscular Hemoglobin 28.8 pg (28.0-32.0); Mean Corpuscular Hgb Conc. 33.3 g/dL (32.0-36.0); Mean Corpuscular Volume 86.3 fL (80.0-100.0); Monocytes # (auto) 0.8 10 ^3/uL (0-1.3); Monocytes % (auto) 8.5 % (0.0-12.0); Neutrophils # (auto) 7.4 10 ^3/uL (1.6-8.6); Neutrophils % (auto) 76.6 % (37.0-80.0); Red Blood Cells 3.31 10^6/uL (4.5-5.90); Red Cell Distribution Width 13.8 % (11.8-14.3); White Blood Cell 9.7 10^3/uL (4.4-10.8)
[2021-05-14 04:37] LABS: BUN/Creatinine Ratio 46.7; Calcium 8.9 mg/dL (8.5-10.1); Magnesium 1.8 mg/dL (1.6-2.6)
[2021-05-14 04:40] LABS: Phosphorus 3.8 mg/dL (2.5-4.90); Total Protein 7.8 g/dL (6.4-8.2)
[2021-05-14] MEDS: InsuLIN REG 1unit/0.01ml Soln (100units/ml) SC SCH ×5 (06:00→23:48)
[2021-05-14] MEDS: CEFTAZIDIME-AVIBACTAM 2.5gm in D5W 100 ML IV SCH ×3 (06:01→22:56)
[2021-05-14] MEDS: ACCU-CHEK COMFORT CURVE STRIP VI SCH ×5 (06:02→23:48)
[2021-05-14] MEDS: ACETAMINOPHEN 650 mg PER 20.3 mL UD GT PRN ×2 (06:54→21:13)
[2021-05-14] MEDS: FAMOTIDINE (10MG/ML) 2ML VL IV SCH (10:37)
[2021-05-14] MEDS ORDERED: PANTOPRAZOLE 40 MG/10 ML VIAL INJ IV ONE (12:15)
[2021-05-14] MEDS: fentaNYL Drip 2500mCg/250mlNS 250 ML IV SCH (19:29)
[2021-05-14] MEDS: TPN PER PHARMACY IV NR ×7 (19:45)
[2021-05-14] MEDS ORDERED: TPN PER PHARMACY IV NR ×8 (20:00)
[2021-05-14] MEDS: FLUCONAZOLE 200MG/100ML 100 ML IV SCH (21:07)
[2021-05-14] MEDS: PANTOPRAZOLE 40 MG/10 ML VIAL INJ IV SCH (22:57)
[2021-05-14] MEDS: MIDAZOLAM DRIP 50 mg/50mL 50 ML IV SCH (23:44)
[2021-05-15] VITALS (105 sets, daily range): BP systolic 91–144; BP diastolic 49–99
[2021-05-15] MEDS: METOCLOPRAMIDE HCL 5MG/ml INJ 2ml VIAL IV SCH ×3 (02:00→17:47)
[2021-05-15 05:06] LABS: Potassium 3.6 mmol/L (3.5-5.1)
[2021-05-15 05:17] LABS: Albumin 1.9 g/dL (3.4-5.0); BUN/Creatinine Ratio 62.1; Bilirubin, Total 1.6 mg/dL (0.2-1.0); Calcium 8.2 mg/dL (8.5-10.1); Magnesium 2.4 mg/dL (1.6-2.6); Phosphorus 3.4 mg/dL (2.5-4.90); Pre Albumin 29.2 mg/dL (20.0-40.0); Total Protein 7.6 g/dL (6.4-8.2)
[2021-05-15] MEDS: InsuLIN REG 1unit/0.01ml Soln (100units/ml) SC SCH ×3 (06:00→17:40)
[2021-05-15] MEDS: CEFTAZIDIME-AVIBACTAM 2.5gm in D5W 100 ML IV SCH ×3 (06:00→21:56)
[2021-05-15] MEDS: ACCU-CHEK COMFORT CURVE STRIP VI SCH ×3 (06:00→17:40)
[2021-05-15] MEDS: PANTOPRAZOLE 40 MG/10 ML VIAL INJ IV SCH ×2 (10:16→21:55)
[2021-05-15] MEDS ORDERED: Jevity 1.2 Cal/Fiber 1 Liter GT SCH (12:00)
[2021-05-15] MEDS ORDERED: Pro-Stat SF 30ml Vanilla GT ONE (13:30)
[2021-05-15] MEDS: ACETAMINOPHEN 650 mg PER 20.3 mL UD GT PRN ×2 (13:37→21:00)
[2021-05-15] MEDS: PROPOFOL 100 ML IV SCH (17:39)
[2021-05-15] MEDS: MIDAZOLAM DRIP 50 mg/50mL 50 ML IV SCH (17:39)
[2021-05-15] MEDS ORDERED: TPN PER PHARMACY IV NR ×8 (20:00)
[2021-05-15] MEDS: FLUCONAZOLE 200MG/100ML 100 ML IV SCH (20:07)
[2021-05-15] MEDS: fentaNYL Drip 2500mCg/250mlNS 250 ML IV SCH (21:00)
[2021-05-15] MEDS: Pro-Stat SF 30ml Vanilla GT SCH (22:03)
[2021-05-16] VITALS (103 sets, daily range): BP systolic 99–205; BP diastolic 56–101
[2021-05-16] MEDS: PROPOFOL 100 ML IV SCH ×3 (00:45→21:50)
[2021-05-16] MEDS: METOCLOPRAMIDE HCL 5MG/ml INJ 2ml VIAL IV SCH ×3 (02:00→18:05)
[2021-05-16 04:48] LABS: Calcium 8.5 mg/dL (8.5-10.1); Potassium 3.6 mmol/L (3.5-5.1)
[2021-05-16 05:02] LABS: Albumin 1.9 g/dL (3.4-5.0); Bilirubin, Total 1.2 mg/dL (0.2-1.0); Magnesium 2.1 mg/dL (1.6-2.6); Phosphorus 3.3 mg/dL (2.5-4.90); Total Protein 7.3 g/dL (6.4-8.2)
[2021-05-16] MEDS: InsuLIN REG 1unit/0.01ml Soln (100units/ml) SC SCH ×4 (06:00→17:59)
[2021-05-16] MEDS: CEFTAZIDIME-AVIBACTAM 2.5gm in D5W 100 ML IV SCH ×3 (06:05→21:37)
[2021-05-16] MEDS: ACCU-CHEK COMFORT CURVE STRIP VI SCH ×4 (06:05→17:59)
[2021-05-16] MEDS: NOREPINEPHRINE 8 MG/250ML KIT 250 ML IV SCH ×2 (07:55→13:05)
[2021-05-16] MEDS: Pro-Stat SF 30ml Vanilla GT SCH ×2 (10:08→21:37)
[2021-05-16] MEDS: PANTOPRAZOLE 40 MG/10 ML VIAL INJ IV SCH ×2 (10:08→21:35)
[2021-05-16] MEDS ORDERED: POTASSIUM EFFERVESENT TAB 25 MEQ ONE (11:15)
[2021-05-16] MEDS ORDERED: MICAFUNGIN SODIUM 100 MG in SODIUM CHL 0.9% 100 ML IV ONE (12:00)
[2021-05-16] MEDS: ACETAMINOPHEN 650 mg PER 20.3 mL UD GT PRN ×2 (14:19→23:23)
[2021-05-16] MEDS: MIDAZOLAM DRIP 50 mg/50mL 50 ML IV SCH (16:15)
[2021-05-16] MEDS: fentaNYL Drip 2500mCg/250mlNS 250 ML IV SCH (17:56)
[2021-05-16] MEDS ORDERED: TPN PER PHARMACY IV NR ×9 (20:00)
[2021-05-17] VITALS (106 sets, daily range): BP systolic 97–157; BP diastolic 52–122
[2021-05-17] MEDS: METOCLOPRAMIDE HCL 5MG/ml INJ 2ml VIAL IV SCH ×3 (02:49→18:05)
[2021-05-17] MEDS: MIDAZOLAM DRIP 50 mg/50mL 50 ML IV SCH (03:00)
[2021-05-17] MEDS: PROPOFOL 100 ML IV SCH ×2 (04:30→20:00)
[2021-05-17 04:55] LABS: Albumin 1.9 g/dL (3.4-5.0); Calcium 8.4 mg/dL (8.5-10.1); Magnesium 1.9 mg/dL (1.6-2.6)
[2021-05-17 04:58] LABS: Bilirubin, Total 0.8 mg/dL (0.2-1.0); Phosphorus 3.6 mg/dL (2.5-4.90); Total Protein 7.2 g/dL (6.4-8.2)
[2021-05-17] MEDS: InsuLIN REG 1unit/0.01ml Soln (100units/ml) SC SCH ×4 (06:00→18:00)
[2021-05-17] MEDS: CEFTAZIDIME-AVIBACTAM 2.5gm in D5W 100 ML IV SCH ×3 (06:18→22:00)
[2021-05-17] MEDS: ACCU-CHEK COMFORT CURVE STRIP VI SCH ×5 (06:18→23:57)
[2021-05-17] MEDS: Pro-Stat SF 30ml Vanilla GT SCH ×2 (10:00→22:00)
[2021-05-17] MEDS: ACETAMINOPHEN 650 mg PER 20.3 mL UD GT PRN ×2 (10:15→18:50)
[2021-05-17] MEDS: PANTOPRAZOLE 40 MG/10 ML VIAL INJ IV SCH ×2 (10:29→22:00)
[2021-05-17] MEDS: MICAFUNGIN SODIUM 100 MG in SODIUM CHL 0.9% 100 ML IV SCH (10:29)
[2021-05-17] MEDS: NOREPINEPHRINE 8 MG/250ML KIT 250 ML IV SCH (12:43)
[2021-05-17] MEDS: fentaNYL Drip 2500mCg/250mlNS 250 ML IV SCH (15:30)
[2021-05-17] MEDS ORDERED: TPN PER PHARMACY IV NR ×8 (20:00)
[2021-05-18] VITALS (106 sets, daily range): BP systolic 103–159; BP diastolic 58–103
[2021-05-18] MEDS: InsuLIN REG 1unit/0.01ml Soln (100units/ml) SC SCH ×4 (00:19→18:00)
[2021-05-18] MEDS: METOCLOPRAMIDE HCL 5MG/ml INJ 2ml VIAL IV SCH ×3 (02:00→18:00)
[2021-05-18] MEDS: MIDAZOLAM DRIP 50 mg/50mL 50 ML IV SCH ×2 (03:00→15:30)
[2021-05-18] MEDS: PROPOFOL 100 ML IV SCH ×4 (04:00→20:15)
[2021-05-18 04:50] LABS: Basophils # (auto) 0 10 ^3/uL (0-0.2); Basophils % (auto) 0.7 % (0.0-2.0); Eosinophils # (auto) 0.3 10 ^3/uL (0-0.8); Eosinophils % (auto) 4.3 % (0.0-7.0); Hematocrit 27.4 % (41.0-53.0); Lymphocytes # (auto) 1.5 10 ^3/uL (0.4-5.4); Lymphocytes % (auto) 22.1 % (10.0-50.0); Mean Corpuscular Hemoglobin 28.7 pg (28.0-32.0); Mean Corpuscular Hgb Conc. 32.9 g/dL (32.0-36.0); Mean Corpuscular Volume 87.2 fL (80.0-100.0); Monocytes # (auto) 0.8 10 ^3/uL (0-1.3); Monocytes % (auto) 11.4 % (0.0-12.0); Neutrophils # (auto) 4.2 10 ^3/uL (1.6-8.6); Neutrophils % (auto) 61.5 % (37.0-80.0); Red Blood Cells 3.14 10^6/uL (4.5-5.90); Red Cell Distribution Width 14.2 % (11.8-14.3); White Blood Cell 6.8 10^3/uL (4.4-10.8)
[2021-05-18 05:07] LABS: INR 1.06 (0.9-1.15); Partial Thromboplastin Time 25.9 sec (23.6-33.0)
[2021-05-18 05:10] LABS: Albumin 1.9 g/dL (3.4-5.0); Calcium 8.7 mg/dL (8.5-10.1); Magnesium 2.6 mg/dL (1.6-2.6); Potassium 3.7 mmol/L (3.5-5.1)
[2021-05-18 05:15] LABS: BUN/Creatinine Ratio 69.2; Bilirubin, Total 0.6 mg/dL (0.2-1.0); Phosphorus 4.8 mg/dL (2.5-4.90); Total Protein 7.2 g/dL (6.4-8.2)
[2021-05-18] MEDS: CEFTAZIDIME-AVIBACTAM 2.5gm in D5W 100 ML IV SCH ×2 (06:00→13:37)
[2021-05-18] MEDS: ACCU-CHEK COMFORT CURVE STRIP VI SCH ×3 (06:00→18:00)
[2021-05-18] MEDS: ACETAMINOPHEN 650 mg PER 20.3 mL UD GT PRN (06:44)
[2021-05-18] MEDS: Pro-Stat SF 30ml Vanilla GT SCH ×2 (09:58→22:04)
[2021-05-18] MEDS: MICAFUNGIN SODIUM 100 MG in SODIUM CHL 0.9% 100 ML IV SCH (09:59)
[2021-05-18] MEDS: PANTOPRAZOLE 40 MG/10 ML VIAL INJ IV SCH ×2 (09:59→22:04)
[2021-05-18] MEDS: NOREPINEPHRINE 8 MG/250ML KIT 250 ML IV SCH (13:30)
[2021-05-18] MEDS: fentaNYL Drip 2500mCg/250mlNS 250 ML IV SCH (16:15)
[2021-05-18] MEDS ORDERED: TPN PER PHARMACY IV NR ×5 (20:00)
[2021-05-19] VITALS (92 sets, daily range): BP systolic 99–158; BP diastolic 62–107
[2021-05-19] MEDS: ACETAMINOPHEN 650 mg PER 20.3 mL UD GT PRN ×2 (01:14→17:32)
[2021-05-19] MEDS: METOCLOPRAMIDE HCL 5MG/ml INJ 2ml VIAL IV SCH ×3 (01:49→17:32)
[2021-05-19 04:21] LABS: Basophils # (auto) 0.1 10 ^3/uL (0-0.2); Eosinophils # (auto) 0.1 10 ^3/uL (0-0.8); Eosinophils % (auto) 1.4 % (0.0-7.0); Hematocrit 29.6 % (41.0-53.0); Hemoglobin 9.6 g/dL (13.5-17.5); Lymphocytes # (auto) 1.1 10 ^3/uL (0.4-5.4); Lymphocytes % (auto) 14.4 % (10.0-50.0); Mean Corpuscular Hemoglobin 28.2 pg (28.0-32.0); Mean Corpuscular Hgb Conc. 32.5 g/dL (32.0-36.0); Mean Corpuscular Volume 86.9 fL (80.0-100.0); Monocytes # (auto) 0.7 10 ^3/uL (0-1.3); Monocytes % (auto) 8.9 % (0.0-12.0); Neutrophils # (auto) 5.9 10 ^3/uL (1.6-8.6); Neutrophils % (auto) 74.3 % (37.0-80.0); Nucleated Red Blood Cells % 0.1 %; Red Cell Distribution Width 14.1 % (11.8-14.3)
[2021-05-19 04:36] LABS: Albumin 1.9 g/dL (3.4-5.0); Calcium 8.9 mg/dL (8.5-10.1); Potassium 3.9 mmol/L (3.5-5.1)
[2021-05-19 04:42] LABS: BUN/Creatinine Ratio 53.1; Bilirubin, Total 0.5 mg/dL (0.2-1.0); Magnesium 2.6 mg/dL (1.6-2.6); Phosphorus 4.6 mg/dL (2.5-4.90); Total Protein 7.5 g/dL (6.4-8.2)
[2021-05-19] MEDS: InsuLIN REG 1unit/0.01ml Soln (100units/ml) SC SCH ×4 (06:00→17:33)
[2021-05-19] MEDS: ACCU-CHEK COMFORT CURVE STRIP VI SCH ×4 (06:00→18:00)
[2021-05-19] MEDS: Pro-Stat SF 30ml Vanilla GT SCH ×2 (10:00→22:00)
[2021-05-19] MEDS: PROPOFOL 100 ML IV SCH (10:27)
[2021-05-19] MEDS: MICAFUNGIN SODIUM 100 MG in SODIUM CHL 0.9% 100 ML IV SCH (10:33)
[2021-05-19] MEDS: fentaNYL Drip 2500mCg/250mlNS 250 ML IV SCH (10:41)
[2021-05-19] MEDS: PANTOPRAZOLE 40 MG/10 ML VIAL INJ IV SCH ×2 (11:46→22:00)
[2021-05-19] MEDS: NOREPINEPHRINE 8 MG/250ML KIT 250 ML IV SCH (13:30)
[2021-05-19] MEDS: MIDAZOLAM DRIP 50 mg/50mL 50 ML IV SCH ×2 (13:38→14:17)
[2021-05-19] MEDS ORDERED: TPN PER PHARMACY IV NR ×6 (20:00)
[2021-05-20] VITALS (68 sets, daily range): BP systolic 103–146; BP diastolic 65–92
[2021-05-20] MEDS: ACCU-CHEK COMFORT CURVE STRIP VI SCH ×4 (00:20→17:46)
[2021-05-20] MEDS: InsuLIN REG 1unit/0.01ml Soln (100units/ml) SC SCH ×4 (00:20→17:46)
[2021-05-20] MEDS: METOCLOPRAMIDE HCL 5MG/ml INJ 2ml VIAL IV SCH ×3 (02:00→17:45)
[2021-05-20 05:35] LABS: Basophils # (auto) 0.1 10 ^3/uL (0-0.2); Eosinophils # (auto) 0.3 10 ^3/uL (0-0.8); Eosinophils % (auto) 4.5 % (0.0-7.0); Hematocrit 27.8 % (41.0-53.0); Hemoglobin 9.1 g/dL (13.5-17.5); Lymphocytes # (auto) 1.3 10 ^3/uL (0.4-5.4); Lymphocytes % (auto) 19.2 % (10.0-50.0); Mean Corpuscular Hemoglobin 28.5 pg (28.0-32.0); Mean Corpuscular Hgb Conc. 32.9 g/dL (32.0-36.0); Mean Corpuscular Volume 86.8 fL (80.0-100.0); Monocytes # (auto) 0.7 10 ^3/uL (0-1.3); Monocytes % (auto) 10.5 % (0.0-12.0); Neutrophils # (auto) 4.4 10 ^3/uL (1.6-8.6); Neutrophils % (auto) 64.8 % (37.0-80.0); Red Cell Distribution Width 14.6 % (11.8-14.3); White Blood Cell 6.8 10^3/uL (4.4-10.8)
[2021-05-20 05:40] LABS: Albumin 1.8 g/dL (3.4-5.0); Calcium 8.7 mg/dL (8.5-10.1); Magnesium 1.5 mg/dL (1.6-2.6); Potassium 3.5 mmol/L (3.5-5.1)
[2021-05-20 05:44] LABS: BUN/Creatinine Ratio 71.4; Bilirubin, Total 0.6 mg/dL (0.2-1.0); Phosphorus 3.4 mg/dL (2.5-4.90); Total Protein 7.1 g/dL (6.4-8.2)
[2021-05-20] MEDS: MIDAZOLAM DRIP 50 mg/50mL 50 ML IV SCH (08:42)
[2021-05-20] MEDS: PANTOPRAZOLE 40 MG/10 ML VIAL INJ IV SCH ×2 (10:00→22:03)
[2021-05-20] MEDS: Pro-Stat SF 30ml Vanilla GT SCH ×2 (10:00→21:49)
[2021-05-20] MEDS: MAGNESIUM SULFATE 1GM/100ML 100 ML IV SCH ×2 (10:00→11:00)
[2021-05-20] MEDS ORDERED: POTASSIUM CHL 20MEQ/100ML 100 ML IV ONE ×2 (11:00→13:45)
[2021-05-20] MEDS ORDERED: METOPROLOL TARTRATE 1MG/1ML-5ML VIAL IV ONE (12:30)
[2021-05-20] MEDS: ACETAMINOPHEN 650 mg PER 20.3 mL UD GT PRN (12:41)
[2021-05-20] MEDS: NOREPINEPHRINE 8 MG/250ML KIT 250 ML IV SCH (13:30)
[2021-05-20] MEDS ORDERED: ENOXAPARIN SOD 30 MG/0.3 ML SYRINGE SC ONE (14:00)
[2021-05-20] MEDS: PROPOFOL 100 ML IV SCH (14:51)
[2021-05-20] MEDS: fentaNYL Drip 2500mCg/250mlNS 250 ML IV SCH (16:15)
[2021-05-20] MEDS ORDERED: TPN PER PHARMACY IV NR ×9 (20:00)
[2021-05-21] VITALS (106 sets, daily range): BP systolic 101–142; BP diastolic 47–97
[2021-05-21] MEDS: METOCLOPRAMIDE HCL 5MG/ml INJ 2ml VIAL IV SCH ×3 (02:00→18:00)
[2021-05-21] MEDS: InsuLIN REG 1unit/0.01ml Soln (100units/ml) SC SCH ×4 (06:00→16:50)
[2021-05-21] MEDS: ACCU-CHEK COMFORT CURVE STRIP VI SCH ×4 (06:11→16:51)
[2021-05-21 07:03] LABS: Basophils # (auto) 0.1 10 ^3/uL (0-0.2); Eosinophils # (auto) 0.2 10 ^3/uL (0-0.8); Eosinophils % (auto) 3.6 % (0.0-7.0); Hematocrit 27.2 % (41.0-53.0); Lymphocytes # (auto) 1.3 10 ^3/uL (0.4-5.4); Lymphocytes % (auto) 19.6 % (10.0-50.0); Mean Corpuscular Hemoglobin 28.6 pg (28.0-32.0); Mean Corpuscular Hgb Conc. 33.1 g/dL (32.0-36.0); Mean Corpuscular Volume 86.5 fL (80.0-100.0); Monocytes # (auto) 0.8 10 ^3/uL (0-1.3); Monocytes % (auto) 12.1 % (0.0-12.0); Neutrophils # (auto) 4.3 10 ^3/uL (1.6-8.6); Neutrophils % (auto) 63.7 % (37.0-80.0); Red Blood Cells 3.15 10^6/uL (4.5-5.90); Red Cell Distribution Width 14.8 % (11.8-14.3); White Blood Cell 6.8 10^3/uL (4.4-10.8)
[2021-05-21 07:19] LABS: Albumin 1.7 g/dL (3.4-5.0); INR 1.08 (0.9-1.15); Partial Thromboplastin Time 28.8 sec (23.6-33.0); Potassium 4.1 mmol/L (3.5-5.1)
[2021-05-21 07:24] LABS: BUN/Creatinine Ratio 65.2; Bilirubin, Total 0.5 mg/dL (0.2-1.0); Magnesium 2.2 mg/dL (1.6-2.6); Phosphorus 4.5 mg/dL (2.5-4.90); Total Protein 6.5 g/dL (6.4-8.2)
[2021-05-21] MEDS: ACETAMINOPHEN 650 mg PER 20.3 mL UD GT PRN (07:52)
[2021-05-21] MEDS: ENOXAPARIN SOD 30 MG/0.3 ML SYRINGE SC SCH (09:56)
[2021-05-21] MEDS: PANTOPRAZOLE 40 MG/10 ML VIAL INJ IV SCH ×2 (09:58→21:36)
[2021-05-21] MEDS: Pro-Stat SF 30ml Vanilla GT SCH ×2 (10:00→21:35)
[2021-05-21] MEDS: PROPOFOL 100 ML IV SCH ×3 (10:57→21:30)
[2021-05-21] MEDS: NOREPINEPHRINE 8 MG/250ML KIT 250 ML IV SCH (13:30)
[2021-05-21] MEDS: MIDAZOLAM DRIP 50 mg/50mL 50 ML IV SCH ×2 (16:18→21:30)
[2021-05-21] MEDS: fentaNYL Drip 2500mCg/250mlNS 250 ML IV SCH (21:29)
[2021-05-21] MEDS: TPN PER PHARMACY IV NR ×9 (21:34)
[2021-05-22] VITALS (59 sets, daily range): BP systolic 99–127; BP diastolic 42–78
[2021-05-22] MEDS: METOCLOPRAMIDE HCL 5MG/ml INJ 2ml VIAL IV SCH ×3 (03:08→16:52)
[2021-05-22 03:58] LABS: Eosinophils # (auto) 0.2 10 ^3/uL (0-0.8); Hematocrit 22.9 % (41.0-53.0); Hemoglobin 7.8 g/dL (13.5-17.5); Mean Corpuscular Hemoglobin 29.1 pg (28.0-32.0); Neutrophils # (auto) 4.1 10 ^3/uL (1.6-8.6); Red Blood Cells 2.67 10^6/uL (4.5-5.90)
[2021-05-22 04:01] LABS: Basophils # (auto) 0.1 10 ^3/uL (0-0.2); Lymphocytes # (auto) 1.2 10 ^3/uL (0.4-5.4); Lymphocytes % (auto) 20.1 % (10.0-50.0); Mean Corpuscular Volume 85.8 fL (80.0-100.0); Monocytes # (auto) 0.6 10 ^3/uL (0-1.3); Monocytes % (auto) 9.8 % (0.0-12.0); Neutrophils % (auto) 66.1 % (37.0-80.0); Red Cell Distribution Width 14.5 % (11.8-14.3); White Blood Cell 6.2 10^3/uL (4.4-10.8)
[2021-05-22 04:24] LABS: INR 1.09 (0.9-1.15)
[2021-05-22 04:28] LABS: Albumin 1.5 g/dL (3.4-5.0); Calcium 7.2 mg/dL (8.5-10.1)
[2021-05-22 04:33] LABS: BUN/Creatinine Ratio 66.7; Bilirubin, Total 0.4 mg/dL (0.2-1.0); Phosphorus 3.3 mg/dL (2.5-4.90); Pre Albumin 18.4 mg/dL (20.0-40.0); Total Protein 5.7 g/dL (6.4-8.2)
[2021-05-22] MEDS: ACETAMINOPHEN 650 mg PER 20.3 mL UD GT PRN (04:59)
[2021-05-22] MEDS: InsuLIN REG 1unit/0.01ml Soln (100units/ml) SC SCH ×4 (05:08→18:00)
[2021-05-22] MEDS: ACCU-CHEK COMFORT CURVE STRIP VI SCH ×4 (06:00→18:10)
[2021-05-22] MEDS: Pro-Stat SF 30ml Vanilla GT SCH ×2 (07:51→21:53)
[2021-05-22] MEDS: ENOXAPARIN SOD 30 MG/0.3 ML SYRINGE SC SCH (07:52)
[2021-05-22] MEDS: PANTOPRAZOLE 40 MG/10 ML VIAL INJ IV SCH ×2 (12:00→21:56)
[2021-05-22] MEDS ORDERED: FLUCONAZOLE 200MG/100ML 100 ML IV ONE (12:15)
[2021-05-22] MEDS: NOREPINEPHRINE 8 MG/250ML KIT 250 ML IV SCH (13:10)
[2021-05-22] MEDS: MEROPENEM 1GM IVPB 100 ML IV SCH ×2 (14:11→21:54)
[2021-05-22] MEDS: fentaNYL Drip 2500mCg/250mlNS 250 ML IV SCH (16:23)
[2021-05-22] MEDS: TPN PER PHARMACY IV NR ×19 (20:09)
[2021-05-22] MEDS: MIDAZOLAM DRIP 50 mg/50mL 50 ML IV SCH (23:00)
[2021-05-23] VITALS (81 sets, daily range): BP systolic 91–144; BP diastolic 56–82
[2021-05-23] MEDS: ACCU-CHEK COMFORT CURVE STRIP VI SCH ×5 (00:24→23:32)
[2021-05-23] MEDS: PROPOFOL 100 ML IV SCH (00:25)
[2021-05-23] MEDS: METOCLOPRAMIDE HCL 5MG/ml INJ 2ml VIAL IV SCH ×3 (01:46→11:35)
[2021-05-23 04:55] LABS: Albumin 1.6 g/dL (3.4-5.0); Calcium 7.7 mg/dL (8.5-10.1); Potassium 3.8 mmol/L (3.5-5.1)
[2021-05-23 04:59] LABS: BUN/Creatinine Ratio 52.4; Bilirubin, Total 0.4 mg/dL (0.2-1.0); Phosphorus 3.3 mg/dL (2.5-4.90); Pre Albumin 20.3 mg/dL (20.0-40.0); Total Protein 6.5 g/dL (6.4-8.2)
[2021-05-23] MEDS: InsuLIN REG 1unit/0.01ml Soln (100units/ml) SC SCH ×5 (06:00→23:32)
[2021-05-23] MEDS: MEROPENEM 1GM IVPB 100 ML IV SCH (06:32)
[2021-05-23] MEDS: ACETAMINOPHEN 650 mg PER 20.3 mL UD GT PRN (06:37)
[2021-05-23] MEDS ORDERED: ENOXAPARIN SOD 30 MG/0.3 ML SYRINGE SC SCH (10:00)
[2021-05-23] MEDS: Pro-Stat SF 30ml Vanilla GT SCH ×2 (10:00→21:38)
[2021-05-23] MEDS: FLUCONAZOLE 200MG/100ML 100 ML IV SCH (10:11)
[2021-05-23] MEDS: MIDAZOLAM DRIP 50 mg/50mL 50 ML IV SCH (10:11)
[2021-05-23] MEDS: PANTOPRAZOLE 40 MG/10 ML VIAL INJ IV SCH ×2 (10:11→21:36)
[2021-05-23] MEDS: ENOXAPARIN SOD 30 MG/0.3 ML SYRINGE SC SCH (10:21)
[2021-05-23] MEDS: fentaNYL Drip 2500mCg/250mlNS 250 ML IV SCH ×2 (11:34→17:31)
[2021-05-23] MEDS: NOREPINEPHRINE 8 MG/250ML KIT 250 ML IV SCH (11:34)
[2021-05-23] MEDS: CIPROFLOXACIN 400MG/200ML 200 ML IV SCH ×2 (13:29→21:36)
[2021-05-23] MEDS: TPN PER PHARMACY IV NR ×10 (19:54)
[2021-05-23] MEDS ORDERED: TPN PER PHARMACY IV NR ×9 (20:00)
[2021-05-24] VITALS (100 sets, daily range): BP systolic 92–158; BP diastolic 41–88
[2021-05-24 04:11] LABS: Basophils # (auto) 0.1 10 ^3/uL (0-0.2); Basophils % (auto) 0.7 % (0.0-2.0); Eosinophils # (auto) 0.3 10 ^3/uL (0-0.8); Eosinophils % (auto) 4.1 % (0.0-7.0); Hematocrit 26.9 % (41.0-53.0); Hemoglobin 8.9 g/dL (13.5-17.5); Lymphocytes # (auto) 0.9 10 ^3/uL (0.4-5.4); Lymphocytes % (auto) 12.2 % (10.0-50.0); Mean Corpuscular Hemoglobin 28.7 pg (28.0-32.0); Mean Corpuscular Hgb Conc. 33.1 g/dL (32.0-36.0); Mean Corpuscular Volume 86.8 fL (80.0-100.0); Monocytes # (auto) 0.6 10 ^3/uL (0-1.3); Monocytes % (auto) 8.4 % (0.0-12.0); Neutrophils # (auto) 5.6 10 ^3/uL (1.6-8.6); Neutrophils % (auto) 74.6 % (37.0-80.0); Red Cell Distribution Width 14.6 % (11.8-14.3); White Blood Cell 7.5 10^3/uL (4.4-10.8)
[2021-05-24 04:29] LABS: INR 1.09 (0.9-1.15); Partial Thromboplastin Time 30.2 sec (23.6-33.0)
[2021-05-24 04:37] LABS: Albumin 1.7 g/dL (3.4-5.0); Calcium 7.6 mg/dL (8.5-10.1); Magnesium 2.3 mg/dL (1.6-2.6); Potassium 4.3 mmol/L (3.5-5.1)
[2021-05-24 04:41] LABS: BUN/Creatinine Ratio 68.8; Bilirubin, Total 0.4 mg/dL (0.2-1.0); Phosphorus 2.8 mg/dL (2.5-4.90); Total Protein 6.4 g/dL (6.4-8.2)
[2021-05-24] MEDS: ACCU-CHEK COMFORT CURVE STRIP VI SCH ×3 (05:33→17:38)
[2021-05-24] MEDS: InsuLIN REG 1unit/0.01ml Soln (100units/ml) SC SCH ×3 (05:33→17:39)
[2021-05-24] MEDS: MIDAZOLAM DRIP 50 mg/50mL 50 ML IV SCH ×2 (05:38→23:25)
[2021-05-24] MEDS: fentaNYL Drip 2500mCg/250mlNS 250 ML IV SCH ×2 (05:41→20:07)
[2021-05-24] MEDS ORDERED: LIDOCAINE W/ EPINEPHRINE 1% 20ML VIAL ONE (07:37)
[2021-05-24] MEDS ORDERED: MIDAZOLAM HCL 2MG/2ML 2ml VIAL (1mg/ml) ONE (08:14)
[2021-05-24] MEDS ORDERED: KETAMINE HCL 10 ML ONE (08:14)
[2021-05-24] MEDS ORDERED: ROCURONIUM 10MG/ML 10ML VIAL IV ONE (08:14)
[2021-05-24] MEDS ORDERED: fentaNYL CITRATE 100 MCG/2 ML VL ONE (08:14)
[2021-05-24] MEDS ORDERED: LIDOCAINE 2% (LOCAL ANESTH.) PF 5ml SDV ONE (08:15)
[2021-05-24] MEDS ORDERED: ePHEDrine SULFATE 50 MG/ML AMP ONE (08:15)
[2021-05-24] MEDS ORDERED: PHENYLEPHRINE HCL 10 MG/ML VL ONE (08:15)
[2021-05-24] MEDS ORDERED: PROPOFOL 10 MG/ML 20 ML IV ONE (08:15)
[2021-05-24] MEDS: Pro-Stat SF 30ml Vanilla GT SCH ×2 (10:07→21:58)
[2021-05-24] MEDS: CIPROFLOXACIN 400MG/200ML 200 ML IV SCH (10:12)
[2021-05-24] MEDS: PANTOPRAZOLE 40 MG/10 ML VIAL INJ IV SCH ×2 (10:12→22:10)
[2021-05-24] MEDS: FLUCONAZOLE 200MG/100ML 100 ML IV SCH (10:13)
[2021-05-24] MEDS: ENOXAPARIN SOD 30 MG/0.3 ML SYRINGE SC SCH (10:13)
[2021-05-24] MEDS: NOREPINEPHRINE 8 MG/250ML KIT 250 ML IV SCH (13:30)
[2021-05-24] MEDS: PROPOFOL 100 ML IV SCH ×2 (18:15)
[2021-05-24] MEDS: TPN PER PHARMACY IV NR ×10 (21:04)
[2021-05-25] VITALS (105 sets, daily range): BP systolic 87–134; BP diastolic 38–72
[2021-05-25] MEDS: ACCU-CHEK COMFORT CURVE STRIP VI SCH ×4 (00:02→18:00)
[2021-05-25] MEDS: InsuLIN REG 1unit/0.01ml Soln (100units/ml) SC SCH ×5 (00:17→18:00)
[2021-05-25] MEDS: PROPOFOL 100 ML IV SCH ×3 (01:27→14:50)
[2021-05-25 04:35] LABS: Basophils # (auto) 0 10 ^3/uL (0-0.2); Basophils % (auto) 0.1 % (0.0-2.0); Eosinophils # (auto) 0 10 ^3/uL (0-0.8); Hematocrit 24.5 % (41.0-53.0); Lymphocytes # (auto) 0.5 10 ^3/uL (0.4-5.4); Neutrophils # (auto) 4.8 10 ^3/uL (1.6-8.6); White Blood Cell 5.9 10^3/uL (4.4-10.8)
[2021-05-25 04:37] LABS: Hemoglobin 8.2 g/dL (13.5-17.5); Lymphocytes % (auto) 8.4 % (10.0-50.0); Mean Corpuscular Hemoglobin 28.8 pg (28.0-32.0); Mean Corpuscular Hgb Conc. 33.4 g/dL (32.0-36.0); Mean Corpuscular Volume 86.3 fL (80.0-100.0); Monocytes # (auto) 0.6 10 ^3/uL (0-1.3); Monocytes % (auto) 9.8 % (0.0-12.0); Neutrophils % (auto) 81.7 % (37.0-80.0); Nucleated Red Blood Cells % 0.1 %; Red Blood Cells 2.84 10^6/uL (4.5-5.90); Red Cell Distribution Width 14.3 % (11.8-14.3)
[2021-05-25 04:47] LABS: Albumin 1.7 g/dL (3.4-5.0); Potassium 4.2 mmol/L (3.5-5.1)
[2021-05-25 04:53] LABS: BUN/Creatinine Ratio 80.8; Bilirubin, Total 0.4 mg/dL (0.2-1.0); Calcium 7.7 mg/dL (8.5-10.1); Magnesium 1.8 mg/dL (1.6-2.6); Phosphorus 3.6 mg/dL (2.5-4.90); Total Protein 6.2 g/dL (6.4-8.2)
[2021-05-25] MEDS: ENOXAPARIN SOD 30 MG/0.3 ML SYRINGE SC SCH (10:00)
[2021-05-25] MEDS: PANTOPRAZOLE 40 MG/10 ML VIAL INJ IV SCH ×2 (10:00→22:08)
[2021-05-25] MEDS: Pro-Stat SF 30ml Vanilla GT SCH ×2 (10:00→22:00)
[2021-05-25] MEDS: NOREPINEPHRINE 8 MG/250ML KIT 250 ML IV SCH (13:30)
[2021-05-25] MEDS: fentaNYL Drip 2500mCg/250mlNS 250 ML IV SCH (14:50)
[2021-05-25] MEDS: TPN PER PHARMACY IV NR ×20 (19:55→20:52)
[2021-05-26] VITALS (106 sets, daily range): BP systolic 92–147; BP diastolic 40–81
[2021-05-26] MEDS: PROPOFOL 100 ML IV SCH ×3 (00:45→14:30)
[2021-05-26 05:05] LABS: Albumin 1.5 g/dL (3.4-5.0); Calcium 7.6 mg/dL (8.5-10.1); Magnesium 2.4 mg/dL (1.6-2.6); Potassium 3.7 mmol/L (3.5-5.1)
[2021-05-26 05:10] LABS: BUN/Creatinine Ratio 78.3; Bilirubin, Total 0.4 mg/dL (0.2-1.0); Phosphorus 2.2 mg/dL (2.5-4.90); Total Protein 5.6 g/dL (6.4-8.2)
[2021-05-26] MEDS: InsuLIN REG 1unit/0.01ml Soln (100units/ml) SC SCH ×4 (06:00→18:00)
[2021-05-26] MEDS: ACCU-CHEK COMFORT CURVE STRIP VI SCH ×4 (06:02→18:00)
[2021-05-26] MEDS: fentaNYL Drip 2500mCg/250mlNS 250 ML IV SCH (06:50)
[2021-05-26] MEDS: Pro-Stat SF 30ml Vanilla GT SCH ×2 (10:00→21:52)
[2021-05-26] MEDS: ENOXAPARIN SOD 30 MG/0.3 ML SYRINGE SC SCH (10:03)
[2021-05-26] MEDS: PANTOPRAZOLE 40 MG/10 ML VIAL INJ IV SCH ×2 (10:03→21:52)
[2021-05-26] MEDS ORDERED: POTASSIUM PHOSP 22MEQ(15MMOLE) in NS 100 ML IV ONE (10:30)
[2021-05-26] MEDS: MIDAZOLAM DRIP 50 mg/50mL 50 ML IV SCH ×2 (10:46→16:15)
[2021-05-26] MEDS: NOREPINEPHRINE 8 MG/250ML KIT 250 ML IV SCH (13:26)
[2021-05-26] MEDS: TPN PER PHARMACY IV NR ×10 (19:58)
[2021-05-26] MEDS ORDERED: TPN PER PHARMACY IV NR ×9 (20:00)
[2021-05-27] VITALS (94 sets, daily range): BP systolic 83–164; BP diastolic 42–93
[2021-05-27] MEDS: ACCU-CHEK COMFORT CURVE STRIP VI SCH ×4 (00:44→18:10)
[2021-05-27] MEDS: fentaNYL Drip 2500mCg/250mlNS 250 ML IV SCH ×2 (00:45→14:57)
[2021-05-27] MEDS: PROPOFOL 100 ML IV SCH ×2 (03:34→12:15)
[2021-05-27 04:44] LABS: Basophils # (auto) 0 10 ^3/uL (0-0.2); Basophils % (auto) 0.5 % (0.0-2.0); Eosinophils # (auto) 0.1 10 ^3/uL (0-0.8); Eosinophils % (auto) 1.7 % (0.0-7.0); Hematocrit 26.4 % (41.0-53.0); Hemoglobin 8.8 g/dL (13.5-17.5); Lymphocytes # (auto) 1.1 10 ^3/uL (0.4-5.4); Lymphocytes % (auto) 12.4 % (10.0-50.0); Mean Corpuscular Hemoglobin 28.5 pg (28.0-32.0); Mean Corpuscular Hgb Conc. 33.4 g/dL (32.0-36.0); Mean Corpuscular Volume 85.5 fL (80.0-100.0); Monocytes # (auto) 1.1 10 ^3/uL (0-1.3); Monocytes % (auto) 12.6 % (0.0-12.0); Neutrophils # (auto) 6.3 10 ^3/uL (1.6-8.6); Neutrophils % (auto) 72.8 % (37.0-80.0); Red Blood Cells 3.09 10^6/uL (4.5-5.90); Red Cell Distribution Width 14.6 % (11.8-14.3); White Blood Cell 8.6 10^3/uL (4.4-10.8)
[2021-05-27 05:04] LABS: Potassium 4.4 mmol/L (3.5-5.1)
[2021-05-27 05:12] LABS: Albumin 1.8 g/dL (3.4-5.0); BUN/Creatinine Ratio 53.8; Bilirubin, Total 0.5 mg/dL (0.2-1.0); Magnesium 2.4 mg/dL (1.6-2.6); Total Protein 6.5 g/dL (6.4-8.2)
[2021-05-27] MEDS: InsuLIN REG 1unit/0.01ml Soln (100units/ml) SC SCH ×4 (06:00→18:00)
[2021-05-27] MEDS: PANTOPRAZOLE 40 MG/10 ML VIAL INJ IV SCH (09:19)
[2021-05-27] MEDS: ENOXAPARIN SOD 30 MG/0.3 ML SYRINGE SC SCH (09:19)
[2021-05-27] MEDS: ACETAMINOPHEN 650 MG RECT SUPP PR PRN (09:20)
[2021-05-27] MEDS: Pro-Stat SF 30ml Vanilla GT SCH (10:00)
[2021-05-27] MEDS: MIDAZOLAM DRIP 50 mg/50mL 50 ML IV SCH (12:15)
[2021-05-27] MEDS: NOREPINEPHRINE 8 MG/250ML KIT 250 ML IV SCH (13:30)
[2021-05-27] MEDS ORDERED: TPN PER PHARMACY IV NR ×10 (20:00)
== END 2021-05-27 22:00 | DRG 4 ==
LOC: ER 12:39 → EDBD 12:39 → TELE 18:43 → ICU WEST 04-22 17:03
PROVIDERS: ADMIT Nurse Practitioner Acute Care; ATTEND Internal Medicine Pulmonary Disease
PROC: 5A1955Z Respiratory Ventilation, Greater than 96 Consecutive Hours (ICD-10-PCS; 2021-04-22)
PROC: 0DTJ4ZZ Resection of Appendix, Percutaneous Endoscopic Approach (ICD-10-PCS; 2021-04-22)
PROC: 0BH17EZ Insertion of Endotracheal Airway into Trachea, Via Natural or Artificial Opening (ICD-10-PCS; 2021-04-22)
PROC: 0DNU4ZZ Release Omentum, Percutaneous Endoscopic Approach (ICD-10-PCS; principal; 2021-04-22 12:50)
PROC: 05H933Z Insertion of Infusion Device into Right Brachial Vein, Percutaneous Approach (ICD-10-PCS; 2021-05-01)
PROC: B54MZZA Ultrasonography of Right Upper Extremity Veins, Guidance (ICD-10-PCS; 2021-05-01)
PROC: 5A09357 Assistance with Respiratory Ventilation, Less than 24 Consecutive Hours, Continuous Positive Airway Pressure (ICD-10-PCS; 2021-05-01)
PROC: 5A1955Z Respiratory Ventilation, Greater than 96 Consecutive Hours (ICD-10-PCS; 2021-05-01)
PROC: 02HV33Z Insertion of Infusion Device into Superior Vena Cava, Percutaneous Approach (ICD-10-PCS; 2021-05-01)
PROC: 0B918ZZ Drainage of Trachea, Via Natural or Artificial Opening Endoscopic (ICD-10-PCS; 2021-05-08)
PROC: 0B110F4 Bypass Trachea to Cutaneous with Tracheostomy Device, Open Approach (ICD-10-PCS; 2021-05-24)
DX: A41.59 Other Gram-negative sepsis (principal); R65.21 Severe sepsis with septic shock; G92.8 Other toxic encephalopathy; J15.1 Pneumonia due to Pseudomonas; K35.33 Acute appendicitis with perforation, localized peritonitis, and gangrene, with abscess; R64 Cachexia; J96.01 Acute respiratory failure with hypoxia; R19.7 Diarrhea, unspecified; G80.8 Other cerebral palsy; K66.0 Peritoneal adhesions (postprocedural) (postinfection); E88.09 Other disorders of plasma-protein metabolism, not elsewhere classified; F79 Unspecified intellectual disabilities; Z20.822 Contact with and (suspected) exposure to COVID-19; G40.909 Epilepsy, unspecified, not intractable, without status epilepticus; D64.9 Anemia, unspecified; K56.7 Ileus, unspecified; Z99.11 Dependence on respirator [ventilator] status; Z68.1 Body mass index [BMI] 19.9 or less, adult
CPT/HCPCS: 36415; 36600; 70450; 71045; 71250; 71260; 74021; 74176; 74177; 76604; 76700; 76705; 80048; 80053; 80170; 80202; 81001; 82040; 82565; 82728; 82805; 82962; 83605; 83615; 83735; 83880; 84100; 84132; 84443; 84478; 85007; 85025; 85027; 85379; 85610; 85730; 86141; 86850; 86900; 86901; 87040; 87070; 87077; 87081; 87086; 87088; 87186; 87205; 87426; 87493; 88302; 93005; 93306; 93970; 94002; 94003; 94640; 94660; 95819; 96365; 96367; A4605; A4618; C9113; G0378; J0131; J0171; J0330; J0690; J0696; J0714; J1100; J1450; J1956; J2001; J2185; J2248; J2250; J2405; J2543; J2704; J3480; J3490; J7042; J7060; J7131